=== PATIENT | male | born 1940 | race Caucasian/White ===

== ENCOUNTER 2016-06-29 11:41 | Inpatient (IN) | payer OTHER, MEDICARE ==
[~2016-06-29] VITALS: Ht 170.2 cm; Wt 82.1 kg
[~2016-06-29 11:41] MED LIST: ASPIRIN EC81 M1 PO; AUGMENTIN 875 M1 TAB PO; CLOPIDOGREL75 M1 PO; HYDRALAZINE100 MG PO; HYDRODIURIL 112.5 M1 PO; HYDRODIURIL 112.5 MG PO; LISINOPRIL40 MG PO; METOPROLOL SUCC50 M1 PO; NORVASC 10MG10 MG PO; OXYCODONE5 M1 PO; PERCOCET 325 MG1 TA2 PO; SIMVASTATIN20 MG PO; VIBRAMYCIN100 MG PO
--- NOTE | 2016-06-29 12:08 | NUR ---
PT. RECEIVED FROM EMS, ALERT, ORIENTED X4, STATES HE WAS WATCHING TV WHEN HE DEVELOPED CHEST PAIN OVER LEFT CHEST BREAST AREA, NON-RADIATING. PT. STATES HE TOOK 2 ADULT STRENGTH ASPIRIN, AND WHEN EMT'S ARRIVED HE TOOK 3 CHEWABLE 81 MG ASPIRIN. PT. STATES THE PAIN IN HIS CHEST NOW IS AT LEVEL 4-5 AND IT WAS THE SAME ONE HOUR AGO WHEN THE C/P STARTED. PT. SMOKES ONE PK A CIGARETTES A DAY.DENIES ETOH. PT. MEDICATED BY SHANNAN MANZO WITH LABATELOL 10 MG FOR BP 234/112 AUTO CUFF, RECHECKED: MANUAL CUFF 228/100, HR 74
--- NOTE | 2016-06-29 12:15 | NUR ---
EVALUATED BY Alma Rosa PLASCENCIA
--- NOTE | 2016-06-29 12:31 | ED CARDIAC/CP/PALPITATIONS ---
History of Present Illness General Chief Complaint: Chest Pain Stated Complaint: BIBA FOR CP Source: patient, old records Exam Limitations: no limitations Vital Signs & Intake/Output Vital Signs & Intake/Output Vital Signs Date Time Temp Pulse Resp B/P Pulse O2 O2 Flow FiO2 Ox Delivery Rate 07/04 0900 58 160/80 07/04 0900 58 160/80 07/04 0900 58 160/80 07/04 0842 98.5 58 16 160/80 93 Room Air 07/04 0800 Room Air 07/04 0006 98.5 58 18 142/82 91 Room Air 07/03 2227 98.1 64 20 142/74 96 Room Air 07/03 2054 64 162/80 07/03 2054 64 162/80 07/03 1648 98.1 62 17 196/70 96 Room Air 07/03 1600 Room Air 07/03 1226 158/80 07/03 1224 53 158/80 ED Intake and Output 07/04 0000 07/03 1200 Intake Total 840 Output Total Balance 840 Intake, Oral 840 Allergies Coded Allergies: nitroglycerin (Severe, RASH, THROAT SWELLING, DEPRESSION, +SI THOUGHTS 04/20/16) Triage Note: PT. RECEIVED FROM EMS, ALERT, ORIENTED X4, STATES HE WAS WATCHING TV WHEN HE DEVELOPED CHEST PAIN OVER LEFT CHEST BREAST AREA, NON-RADIATING. PT. STATES HE TOOK 2 ADULT STRENGTH ASPIRIN, AND WHEN EMT'S ARRIVED HE TOOK 3 CHEWABLE 81 MG ASPIRIN. PT. STATES THE PAIN IN HIS CHEST NOW IS AT LEVEL 4-5 AND IT WAS THE SAME ONE HOUR AGO WHEN THE C/P STARTED. PT. SMOKES ONE PK A CIGARETTES A DAY.DENIES ETOH. Triage Nurses Notes Reviewed? yes HPI: 76-year-old male brought in by ambulance with complaints of moderate 5 out of 10 sharp aching left sided anterior chest pain that was nonradiating that started while he was at rest, sitting watching TV. He is a pack per day smoker, history of coronary disease , (5 Cardiac stents 10 years ago with CHF), hypertension, hyperlipidemia, NSTEMI (s/p PCI of the LCX), left subclavian stenosis, however patient states that he only has a history of CHF. He is admittedly noncompliant with he states he has been feeling well over the last few days. He took 2 325 mg aspirins and called an ambulance, upon EMS arrival they gave him 3 81 mg aspirins. His pain started around 11 AM suddenly. It is unchanged. He has an allergy to nitroglycerin which causes a diffuse rash. He denies any headaches, palpitations, nausea vomiting abdominal pain back pain and shortness of breath cough fever or flulike illness. (CARLA SHEETS) Reconcile Medications AMOXICILLIN/POTASSIUM CLAV (Augmentin 875-125 Tablet) 875 MG/125 MG TAB 1 TAB PO BID E.Coli septicemia Next dose is due at 12/21/14 NIGHT. Aspirin (Ecotrin*) 81 MG TABLET.DR 1 TAB PO DAILY Baby aspirin (Reported) CLOPIDOGREL BISULFATE (Clopidogrel) 75 MG TABLET 75 MG PO DAILY BLOOD THINNER (Reported) Doxycycline Hyclate (Vibramycin) 100 MG CAPSULE 1 CAP PO BID PNEUMONIA Metoprolol Succinate (Metoprolol Succinate XL) 50 MG TAB.ER.24H 50 MG PO DAILY HIGH BLOOD PRESSURE (Reported) OXYCODONE HCL (Oxycodone) 5 MG CAPSULE 1 CAP PO Q6 PRN PAIN Simvastatin (Zocor) 20 MG TAB 20 MG PO DAILY HIGH CHOLESTROL (Reported) (BOY MUNSON,[place]OT[place]) Past History Travel History Traveled to [place] past 21 day No Medical History Any Pertinent Medical History? see below for history Neurological: NONE EENT: glaucoma, corneal transplant (left eye) Cardiovascular: CAD (w/ 5 cardiac stent placement), CHF (5 year history), hypertension, hyperlipidemia, NSTEMI (w/ PCI of Left Circumflex A) Respiratory: COPD Gastrointestinal: NONE Hepatic: NONE Renal: stent placement (renal artery) Musculoskeletal: NONE Psychiatric: NONE Endocrine: NONE Blood Disorders: NONE Cancer(s): NONE DECKHAND CRAB BOAT/Reproductive: NONE Other Medical Hx: Psoriasis History of MRSA: No History of VRE: No History of CDIFF: No Isolation History: Standard Surgical History Surgical History: cholecystectomy (1 month ago), ERCP Cardiac stents Corneal transplant 2 Psychosocial History Who do you live with Spouse What is your primary language Moldovan Tobacco Use: Current Daily Use Daily Tobacco Use Amount/Type: => 5 Cigarettes daily ETOH Use: denies use Family History Family History, If Any: FATHER ( at a young age from renal disease). Hx Contributory? Yes (CARLA SHEETS) Review of Systems Review of Systems Constitutional: Reports: see HPI. EENTM: Reports: no symptoms. Respiratory: Reports: no symptoms. Cardiovascular: Reports: see HPI. GI: Reports: no symptoms. Genitourinary: Reports: no symptoms. Musculoskeletal: Reports: no symptoms. Skin: Reports: no symptoms. Neurological/Psychological: Reports: no symptoms. Hematologic/Endocrine: Reports: no symptoms. Immunologic/Allergic: Reports: no symptoms. All Other Systems: Reviewed and Negative (CARLA SHEETS) Physical Exam Physical Exam Cardiovascular: regular rate/rhythm Comments: Well-developed well-nourished person in no acute distress HEENT: Left eye corneal transplant noted Pupils equally round and reactive to light. Nose is atraumatic. Pharynx normal. No swelling or edema. Neck: Supple, no lymphadenopathy, normal range of motion without pain or tenderness Back: Nontender, no CVA tenderness. Full range of motion Cardiovascular: Regular rate and rhythms no murmurs, normal JVP Respiratory: Decreased breath sounds with faint wheezing noted. No respiratory distress. Abdomen: Soft, nontender nondistended, no appreciable organomegaly. Normal bowel sounds. No ascites Extremity: Trace bilateral lower extremity No edema, no calf tenderness to palpation, normal and equal pulses. Neuro: Alert oriented x3, motor sensory normal, cranial nerves II through XII grossly intact. Skin: No appreciable rash on exposed skin, skin is warm and dry. Psych: Mood and affect is normal, memory and judgment is normal. Core Measures ACS in differential dx? Yes Severe Sepsis Present: No Septic Shock Present: No (CARLA SHEETS) Progress Differential Diagnosis: AMI, aortic dissection, atrial fibrillation, cholecystitis, CHF/pulm edema, costochondritis, hyperkalemia, hypovolemia, hyperthyroid, hyperventilation, intracranial hemorrhage, musculoskeletal pain, myocarditis, pancreatitis, pericarditis, pneumonia, pneumothorax, PSVT, pulmonary embolism, PUD/GERD, PVCs/PACs, respiratory failure, rib fracture, sepsis, unstable angina, V-fib/V-Tach, WPW syndrome Plan of Care: Orders Procedure Date/time Status Transfer Disposition 07/03 1628 Active OXYGEN 07/03 UNK Complete OXYGEN DAILY CHARGE 07/03 UNK Complete Current Medications Sig/Jonathan Start time Last Medication Dose Stop Time Status Admin Oxycodone/ 2 TAB Q8P PRN 06/29 1745 AC Acetaminophen (Percocet) Laboratory Tests 07/04/16 0600: Anion Gap 9, Estimated GFR 46 L, BUN/Creatinine Ratio 15.3 Diagnostic Imaging: Viewed by Me: CT Scan. Discussed w/RAD: CT Scan. Radiology Impression: PATIENT: IRENE GIRALDO PRESENT AGE: 76 PATIENT ACCOUNT NO: [id number] : 42 LOCATION: [facility] ORDERING PHYSICIAN: CARLA SULLIVAN SERVICE DATE: 06/29/16 EXAM TYPE : CAT - CTA CHEST-AORTIC DISSECTION EXAMINATION: CTA OF CHEST FOR AORTIC DISSECTION CLINICAL INFORMATION: Chest pain. Hypertension. COMPARISON: CT of chest 09/05/2009. Chest x-ray 06/29/2016 TECHNIQUE: Noncontrast axial images obtained through the chest. IV injection of 100 mL Optiray 350 administered intravenously. Images repeated through the chest axially. Coronal and sagittal reformatted images as well as axial MIP sequence. (No off site 3-D imaging performed) FINDINGS: VASCULAR: There is no aortic dissection. No aneurysm of the aorta. Ascending aorta measures 2.7 cm descending thoracic aorta measures 2.6 cm in luminal diameter at the level of the main pulmonary artery. A aorta at the aortic hiatus measures 2.4 cm. There is diffuse atherosclerotic vascular wall calcifications of aorta. There is vascular wall calcification of the coronary arteries. The pulmonary arteries are well-opacified. No filling defects. No evidence of pulmonary embolism. LUNGS: Small peripheral infiltrate in the left lung in subpleural lung along the major fissure seen in the anterior left lower lobe and posterior lateral lingula, sagittal image #20, axial images 273 (5). The central bronchial airways are open. No bronchiectasis. MEDIASTINUM: No mass. No lymphadenopathy. There is no pericardial effusion. AXILLA: No axillary mass or inflammation. UPPER ABDOMEN: Small hepatic cysts at the dome left lobe of liver. Gallbladder not visualized may be surgically absent. Clinically correlate. Extrahepatic CBD measures 7 mm. 1 cm nodule in the left adrenal gland with density measurement of 5 Hounsfield units consistent with small adenoma. SKELETAL: Mild degenerative spondylosis of dorsal spine. IMPRESSION: 1. No aortic dissection or aneurysm. There is atherosclerotic vascular calcifications of aorta and coronary arteries. 2. Small peripheral infiltrate in left lung DICTATED BY: GÓMEZ SINGH MD DATE/TIME DICTATED:06/29/161611 AREA FORESTER :ALEX DATE/TIME TRANSCRIBED:06/29/161611 Initial ED EKG: NSR, rate (72), LVH, abnormal Q waves (v1v2), nonspecific T-wave abnormalities inferior and lateral which appeared to be mildly worse from his previous EKG in April 2016 Prior EKG: changed Rhythm Strip: normal sinus rhythm Comments: Patient noted to have significantly elevated blood pressure, labetalol 10 mg IV was given with mild improvement of blood pressure. Supplemental oxygen provided. We will continue to monitor him. Patient had modest improvement in blood pressure, no change in his pain, he is given 2 mg of morphine IV and reevaluated. 06/29/2016 1:46:26 PM patient reevaluated, still 5 out of 10 pain left side of his chest, blood pressure is has elevated to 230 systolic, he is given 10 mg of hydralazine IV, call placed to cardiology, laboratory values are unremarkable Discussed with Dr. Cunningham, recommends 5 mg of amlodipine and pressure does not improve he should be admitted to the ICU. He continues to have left-sided chest pain without any significant change from the morphine and he is having some mild wheezing. An albuterol nebulizer treatment was ordered and he is given 1 mg of IV Dilaudid for his pain. (CARLA SHEETS) Departure Departure Disposition: STILL A PATIENT Condition: Guarded Referrals: PATIENT HAS NO PRIMARY CARE DR (PCP/Family) Departure Forms: Customer Survey General Discharge Information Admission Note Spoke With: Jennifer ORELLANA MD Documentation of Exam: Documentation of any treatments & extenuating circumstances including Concerns Regarding Discharge (functional status, medication knowledge or non-compliance, living conditions, etc.) that warrant an admission rather than observation: Patient with left-sided chest pain and hypertension that is not responding to treatment in the emergency department, will require ICU monitoring. Discussed with skilled nursing case manager Dr. Orellana. Multiple risk factors uncontrolled hypertension high risk for morbidity or mortality due to risk factors, smoking, severely uncontrolled hypertension and chest pain. He is a poor candidate for discharge home (CARLA SHEETS) Departure Clinical Impression Primary Impression: Hypertension, malignant Secondary Impressions: Chest pain Qualifiers: Chest pain type: unspecified Qualified Code: R07.9 - Chest pain, unspecified PA/UNDERWRITING ASSISTANT Co-Sign Statement Statement: ED Attending supervision documentation- [X] I saw and evaluated the patient. I have also reviewed all the pertinent lab results and diagnostic results. I agree with the findings and the plan of care as documented in the PA's/UNDERWRITING ASSISTANT's documentation. [X] I have reviewed the ED Record and agree with the PA's/UNDERWRITING ASSISTANT's documentation. [] Additions or exceptions (if any) to the PAs/UNDERWRITING ASSISTANT's note and plan are summarized below: [] (CHARLOTTE KNOX MD) Critical Care Note Critical Care Note Critical Care Time: 30-74 min Comments: Multiple doses of IV antihypertensive medication required. Patient requires admission to ICU. Discussed with Dr. Knox (CARLA SHEETS) Departure Forms: Customer Survey General Discharge Information Admission Note Spoke With: Jennifer ORELLANA MD Documentation of Exam: Documentation of any treatments & extenuating circumstances including Concerns Regarding Discharge (functional status, medication knowledge or non-compliance, living conditions, etc.) that warrant an admission rather than observation: Patient with left-sided chest pain and hypertension that is not responding to treatment in the emergency department, will require ICU monitoring. Discussed with skilled nursing case manager Dr. Orellana. Multiple risk factors uncontrolled hypertension high risk for morbidity or mortality due to risk factors, smoking, severely uncontrolled hypertension and chest pain. He is a poor candidate for discharge home (CARLA SHEETS) Departure Clinical Impression Primary Impression: Hypertension, malignant Secondary Impressions: Chest pain Qualifiers: Chest pain type: unspecified Qualified Code: R07.9 - Chest pain, unspecified (CHARLOTTE KNOX MD) Critical Care Note Critical Care Note Critical Care Time: 30-74 min Comments: Multiple doses of IV antihypertensive medication required. Patient requires admission to ICU. Discussed with Dr. Knox (CARLA SHEETS)
--- NOTE | 2016-06-29 12:31 | RADIOLOGY REPORT ---
EXAMINATION: XR PORTABLE CHEST CLINICAL INFORMATION: Chest pain. Hypertension. COMPARISON: 04/20/2016 TECHNIQUE: Portable view of the chest was obtained. FINDINGS: Cardiac leads overlie the chest. The lungs are well expanded. Mild bronchial wall thickening with increased interstitial markings. There is no focal consolidation, edema, or effusion. No pneumothorax. The cardiomediastinal silhouette is within normal limits. No acute osseous abnormality. IMPRESSION: No consolidation. Bronchial wall thickening can be seen with a small airways process such as asthma or atypical/viral infection.
[2016-06-29 12:55] LABS: ABSOLUTE BASOPHIL COUNT 0 /CUMM (0.0-0.2); ABSOLUTE EOSINOPHIL COUNT 0.4 /CUMM (0.0-0.7); ABSOLUTE GRANULOCYTE CT 8.9 /CUMM (1.4-6.5); ABSOLUTE LYMPH COUNT 1.1 /CUMM (1.2-3.4); ABSOLUTE MONOCYTE COUNT 1.1 /CUMM (0.10-0.60); BASOPHIL % 0.2 % (0.0-2.0); EOSINOPHIL % 3.3 % (0-5); GRANULOCYTE % 77.1 % (42.2-75.2); MEAN CORPUSCULAR HGB 30.1 PG (27.0-31.0); MEAN CORPUSCULAR HGB CONC 33.6 G/DL (33.0-37.0); MEAN CORPUSCULAR VOLUME 89.7 FL (80.0-94.0); MEAN PLATELET VOLUME 8.7 FL (7.4-10.4); PLATELET COUNT 192 /CUMM (130-400); RBC DISTRIBUTION WIDTH 13.5 % (11.5-14.5); RED BLOOD CELL CT 5.46 /CUMM (4.70-6.10); WHITE BLOOD CELL COUNT 11.5 /CUMM (4.8-10.8)
--- NOTE | 2016-06-29 13:00 | NUR ---
PT REPORTS HE HAS HAD A A BLOOD CLOT IN HIS LEFT ARM FOR "YEARS",
--- NOTE | 2016-06-29 13:15 | NUR ---
MEDICATED FOR CHEST PAIN 12/18. LABS DRAWN ANT 1245 (1 PURPLE, 1SST, 1 BLUE, 1 YANG)
--- NOTE | 2016-06-29 14:27 | NUR ---
ADDITIONAL IV SITE STARTED,PT. ANXIOUS, AUDIBLE EXP. WHEEZING HEARD, UPON EXAM, RIGHT MID TO RIGHT BASE OF LUNG PRESENT FOR TIGHT WHEEZING, O2 SATURATION 96 ON 2LNP, PT. REASSURED, LAURIE CEBALLOS NOTIFIED, ALBUTEROL NEB ORDERED FOR WHEEZING AND BP 218/105, NORVASC 5MG PO ORDERED FOR NOW
--- NOTE | 2016-06-29 15:12 | NUR ---
MEDICATED FOR LEFT CHEST PAIN (SEE EMAR)
--- NOTE | 2016-06-29 15:15 | NUR ---
ASSUMED CARE OF PT. PT CONTINUES TO HAvE CHEST DISCOMFORT. BLOOD PRESSURE CONTINUES TO BE ELEVATED DESPITE MEDS GIVEN. IN SINUS RHYTHM ON MONTIOR. SATS 98% ON 2 LITERS.
--- NOTE | 2016-06-29 15:20 | NUR ---
ASSUMED CARE OF PT. PT CONTINUES TO COMPLAIN OF CHEST DISCOMFORT. BLOOD PRESSURE CONTINUES TO BE ELEVATED
--- NOTE | 2016-06-29 15:30 | NUR ---
CARLA Posadas IN TO SEE PT. ADDITIONAL DOSE OF HYDRALAZINE GIVEN
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
--- NOTE | 2016-06-29 15:50 | NUR ---
PT IN CT SCAN. LEFT ARM IV IN AC PAINFUL IN CT SCAN. NEW LINE PLACED IN LEFT UPPER ARM
--- NOTE | 2016-06-29 16:13 | NUR ---
PT HAS BED ASSIGNMENT 109
--- NOTE | 2016-06-29 16:24 | CT SCAN REPORT ---
EXAMINATION: CTA OF CHEST FOR AORTIC DISSECTION CLINICAL INFORMATION: Chest pain. Hypertension. COMPARISON: CT of chest 09/05/2009. Chest x-ray 06/29/2016 TECHNIQUE: Noncontrast axial images obtained through the chest. IV injection of 100 mL Optiray 350 administered intravenously. Images repeated through the chest axially. Coronal and sagittal reformatted images as well as axial MIP sequence. (No off site 3-D imaging performed) FINDINGS: VASCULAR: There is no aortic dissection. No aneurysm of the aorta. Ascending aorta measures 2.7 cm descending thoracic aorta measures 2.6 cm in luminal diameter at the level of the main pulmonary artery. A aorta at the aortic hiatus measures 2.4 cm. There is diffuse atherosclerotic vascular wall calcifications of aorta. There is vascular wall calcification of the coronary arteries. The pulmonary arteries are well-opacified. No filling defects. No evidence of pulmonary embolism. LUNGS: Small peripheral infiltrate in the left lung in subpleural lung along the major fissure seen in the anterior left lower lobe and posterior lateral lingula, sagittal image #20, axial images 273 (5). The central bronchial airways are open. No bronchiectasis. MEDIASTINUM: No mass. No lymphadenopathy. There is no pericardial effusion. AXILLA: No axillary mass or inflammation. UPPER ABDOMEN: Small hepatic cysts at the dome left lobe of liver. Gallbladder not visualized may be surgically absent. Clinically correlate. Extrahepatic CBD measures 7 mm. 1 cm nodule in the left adrenal gland with density measurement of 5 Hounsfield units consistent with small adenoma. SKELETAL: Mild degenerative spondylosis of dorsal spine. IMPRESSION: 1. No aortic dissection or aneurysm. There is atherosclerotic vascular calcifications of aorta and coronary arteries. 2. Small peripheral infiltrate in left lung
--- NOTE | 2016-06-29 16:26 | NUR ---
RETURNED FROM CT SCAN. PHYSICIANS REVIEWING CTA SCAN AND NOW IN TO SEE PT
--- NOTE | 2016-06-29 17:40 | NUR ---
PT SENT TO ULTRASOUND.
--- NOTE | 2016-06-29 18:31 | Cons- Cardiology ---
General Information and HPI Consulting Request Date of Consult: 06/29/16 Requested By: Jennifer ORELLANA MD Reason for Consult: Chest pain and uncontrolled HTN Source of Information: patient, family, old records History of Present Illness: 76/M with PMH of CAD (w/ 5 cardiac stent placement), CHF (7 year history), HTN, HLD, NSTEMI (w/ PCI of Left Circumflex A) stent placement (renal artery), glaucoma, corneal transplant (left eye), psoriasis and cholecystectomy 2 years ago presented to [facility] complaning of left upper quadrant abdominal pain radiates to his left lower chest. Around 10 AM patient starts c/o sudden, 4/10, constant, sharp, LUQ abdominal pain that radiates to the anterior inferior left chest. Pain gets worse with deep inspiration and food and nothing seems to help. Patient reported that around 10 AM he got the pain around one hour post meal, then the pain started to improve, however pain got worse around 1 hour after he had while he is in the ED. Patient denies nausea, vomiting, diarrhea, constipation, fever or chills. Patient denies recent use of steroids or NSAIDs, recent travel, or recent sick contacts. Patient denies palpitation, patient radiation to the arm, or diaphoresis however he reported mild dyspnea because breathing makes his pain worse. Allergies/Medications Allergies: Coded Allergies: nitroglycerin (Severe, RASH, THROAT SWELLING, DEPRESSION, +SI THOUGHTS 04/20/16) Home Med List: AMOXICILLIN/POTASSIUM CLAV (Augmentin 875-125 Tablet) 875 MG/125 MG TAB 1 TAB PO BID E.Coli septicemia Next dose is due at 12/21/14 NIGHT. Aspirin E.c. (Ecotrin) 325 MG TAB 1 TAB PO DAILY HEART HEALTH (Reported) CLOPIDOGREL BISULFATE (Clopidogrel) 75 MG TABLET 75 MG PO DAILY BLOOD THINNER (Reported) Doxycycline Hyclate (Vibramycin) 100 MG CAPSULE 1 CAP PO BID PNEUMONIA Metoprolol Succinate (Metoprolol Succinate XL) 50 MG TAB.ER.24H 50 MG PO DAILY HIGH BLOOD PRESSURE (Reported) OXYCODONE HCL (Oxycodone) 5 MG CAPSULE 1 CAP PO Q6 PRN PAIN Simvastatin (Zocor) 20 MG TAB 20 MG PO DAILY HIGH CHOLESTROL (Reported) Current Medications: Current Medications Sig/Jonathan Start time Last Medication Dose Route Stop Time Status Admin Acetaminophen 650 MG Q6P PRN 06/29 1730 AC PO Albuterol Sulfate 3 ML ONCE ONE 06/29 1430 DC 06/29 INH 06/29 1431 1426 Amlodipine Besylate 5 MG DAILY 06/30 1000 AC PO Amlodipine Besylate 0 .STK-MED ONE 06/29 1421 DC PO Amlodipine Besylate 5 MG ONCE ONE 06/29 1415 DC 06/29 PO 06/29 1416 1433 Aspirin 81 MG DAILY 06/30 1000 AC PO Docusate Sodium 100 MG BID PRN 06/29 1745 AC PO Heparin Sodium 5,000 UNIT Q8 06/29 2200 AC (Porcine) SC Hydralazine HCl 0 .STK-MED ONE 06/29 1532 DC .ROUTE Hydralazine HCl 10 MG ONCE ONE 06/29 1530 DC 06/29 IV 06/29 1531 1538 Hydralazine HCl 10 MG ONCE ONE 06/29 1345 DC 06/29 IV 06/29 1346 1348 Hydralazine HCl 0 .STK-MED ONE 06/29 1342 DC .ROUTE Hydromorphone HCl 1 MG ONCE ONE 06/29 1515 DC 06/29 IV 06/29 1516 1511 Hydromorphone HCl 0 .STK-MED ONE 06/29 1509 DC .ROUTE Labetalol HCl 100 MG BID 06/29 2200 AC PO Labetalol HCl 10 MG ONCE ONE 06/29 1200 DC 06/29 IV 06/29 1201 1201 Labetalol HCl 0 .STK-MED ONE 06/29 1156 DC IV Morphine Sulfate 2 MG ONCE ONE 06/29 1315 DC 06/29 IV 06/29 1316 1315 Morphine Sulfate 0 .STK-MED ONE 06/29 1312 DC .ROUTE Oxycodone/ 2 TAB Q8P PRN 06/29 1745 AC Acetaminophen PO Oxycodone/ 1 TAB Q6P PRN 06/29 1730 AC Acetaminophen PO Past History Travel History Traveled to [place] past 21 day No Medical History Neurological: NONE EENT: glaucoma, corneal transplant (left eye) Cardiovascular: CAD (w/ 5 cardiac stent placement), CHF (5 year history), hypertension, hyperlipidemia, NSTEMI (w/ PCI of Left Circumflex A) Respiratory: COPD Gastrointestinal: NONE Hepatic: NONE Renal: stent placement (renal artery) Musculoskeletal: NONE Psychiatric: NONE Endocrine: NONE Blood Disorders: NONE Cancer(s): NONE [employer]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 Psychosocial History Primary Language: Slovak Smoking Status: Current Everyday Smoker ETOH Use: denies use Functional Ability ADLs Independent: dressing, eating, toileting, bathing. Ambulation: independent Exam & Diagnostic Data Vital Signs and I&O Vital Signs Date Time Temp Pulse Resp B/P Pulse O2 O2 Flow FiO2 Ox Delivery Rate 06/29 1625 200/88 06/29 1615 98.7 82 20 203/88 95 Room Air 06/29 1538 72 220/110 06/29 1503 72 26 220/110 96 Nasal 2.0L Cannula 06/29 1450 70 18 232/104 06/29 1437 97 Nasal 1.5L Cannula 06/29 1433 70 218/105 06/29 1420 218/105 06/29 1348 74 18 234/112 06/29 1251 74 18 202/94 99 Nasal 2.0L Cannula 06/29 1201 78 18 228/112 06/29 1200 98.4 70 18 228/112 100 Room Air Intake & Output 06/29 1600 06/29 0800 06/29 0000 06/28 1600 06/28 0800 06/28 0000 Intake Total 10 Output Total Balance 10 Intake, IV 10 Patient 181 lb Weight Labs/Jovan Results: Laboratory Tests 06/29 06/29 1240 1240 Chemistry Sodium (137 - 145 mmol/L) 142 Potassium (3.5 - 5.1 mmol/L) 4.1 Chloride (98 - 107 mmol/L) 103 Carbon Dioxide (22 - 30 mmol/L) 29 Anion Gap (5 - 16) 10 BUN (9 - 20 mg/dL) 19 Creatinine (0.7 - 1.2 mg/dL) 1.3 H Estimated GFR (>60 ml/min) 54 L BUN/Creatinine Ratio (7 - 25 %) 14.6 Glucose (65 - 99 mg/dL) 105 H Hemoglobin A1c Pending Lactic Acid (0.7 - 2.1 mmol/L) 1.4 Calcium (8.4 - 10.2 mg/dL) 9.1 Total Bilirubin (0.2 - 1.3 mg/dL) 0.5 AST (17 - 59 U/L) 21 ALT (21 - 72 U/L) 28 Alkaline Phosphatase (< 127 U/L) 80 Troponin I (<0.11 ng/ml) 0.03 Omd-L-Ifiqxuflnjs Pept (<125 pg/mL) Pending Total Protein (6.3 - 8.2 g/dL) 7.1 Albumin (3.5 - 5.0 g/dL) 3.7 Globulin (1.9 - 4.2 gm/dL) 3.4 Albumin/Globulin Ratio (1.1 - 2.2 %) 1.1 Amylase (30 - 110 U/L) 71 Lipase (23 - 300 U/L) 149 Hematology CBC w Diff NO MAN DIFF REQ WBC (4.8 - 10.8 /CUMM) 11.5 H RBC (4.70 - 6.10 /CUMM) 5.46 Hgb (14.0 - 18.0 G/DL) 16.4 Hct (42 - 52 %) 49.0 MCV (80.0 - 94.0 FL) 89.7 MCH (27.0 - 31.0 PG) 30.1 RDW (11.5 - 14.5 %) 13.5 Plt Count (130 - 400 /CUMM) 192 MPV (7.4 - 10.4 FL) 8.7 Gran % (42.2 - 75.2 %) 77.1 H Lymphocytes % (20.5 - 51.1 %) 9.5 L Monocytes % (1.7 - 9.3 %) 9.9 H Eosinophils % (0 - 5 %) 3.3 Basophils % (0.0 - 2.0 %) 0.2 Absolute Granulocytes (1.4 - 6.5 /CUMM) 8.9 H Absolute Lymphocytes (1.2 - 3.4 /CUMM) 1.1 L Absolute Monocytes (0.10 - 0.60 /CUMM) 1.1 H Absolute Eosinophils (0.0 - 0.7 /CUMM) 0.4 Absolute Basophils (0.0 - 0.2 /CUMM) 0 PUBS MCHC (33.0 - 37.0 G/DL) 33.6 Diagnostic Data EKG Results Sinus rhythm with NSSTTWCs CXR Results FINDINGS: Cardiac leads overlie the chest. The lungs are well expanded. Mild bronchial wall thickening with increased interstitial markings. There is no focal consolidation, edema, or effusion. No pneumothorax. The cardiomediastinal silhouette is within normal limits. No acute osseous abnormality. IMPRESSION: No consolidation. Bronchial wall thickening can be seen with a small airways process such as asthma or atypical/viral infection. Other Results CTA chest: IMPRESSION: 1. No aortic dissection or aneurysm. There is atherosclerotic vascular calcifications of aorta and coronary arteries. 2. Small peripheral infiltrate in left lung Assessment/Plan Assessment/Plan Assessment: 1. Uncontrolled HTN 2. LUQ/Left lower chest discomfort; r/o ACS - The patient symptoms are atypical for ischemia. CT shows subtle left lower lobe infiltrate with mildly elevated WBC count. No dissection on CT chest. 3. Known CAD with distant history of multiple stents. 4. Mild SANDRO 5. History of renal artery stenosis and prior stent 6. Left adrenal nodule; ? adenoma 7. Diffuse atheromatous disease thoracic aorta with evidence of plaque ulceration. REcommendations: - ICU admission. - continue labetalol and amlodipine with IV doses of hydralazine as needed - serial troponins - echocardiogram - renal ultrasound with renal artery doppler - attempt to obtain any possible records about prior coronary artery and renal artery interventions. - 24 hour urine collections for VMA, metanephrines, catechols, cortisol, etc. - further plans after the above - followup labs in am. - ?consider baseline Pulmonary consult to assess ? LLL infiltrate. Consult Acknowledgment - Thank you for your consult request.
--- NOTE | 2016-06-29 18:45 | ULTRASOUND REPORT ---
EXAMINATION: US DUPLEX CAROTID AND VERTEBRAL CLINICAL INFORMATION: Right eye flashing light COMPARISON: None. TECHNIQUE: Real-time ultrasound and Doppler techniques (integrating B-mode 2D vascular images, Doppler spectral analysis and color flow Doppler imaging) were utilized to interrogate the extracranial carotid and vertebral arteries bilaterally. The degree of stenosis determined by criteria similar to NASCET. FINDINGS: Right common carotid artery peak systolic velocity ranges between 110 and 114 cm/s with maximal end-diastolic velocity of 21.6 cm/s. Right internal carotid artery peak systolic velocities range between 60.4 and 87.9 cm/s with maximal end-diastolic velocity of 21.1 cm/s. Right external carotid artery peak systolic velocity is 119 cm/s. There is atherosclerotic disease of the right carotid bifurcation. The right vertebral artery is not visualized and I cannot exclude that it is occluded. Left common carotid artery peak systolic velocities range between 55.8 and 68.4 cm/s with end-diastolic velocity of 25.5 cm/s. There is no demonstrated Doppler flow within the left internal carotid artery, concerning for left internal carotid artery occlusion. A CTA would be helpful in ensuring that this reflects a true occlusion and not a preocclusive stenosis. Left external carotid artery peak systolic velocity is 69.2 cm/s with an end-diastolic velocity of 18.8 cm/s. There is antegrade flow within the left vertebral artery. Atherosclerotic plaque at the left carotid bifurcation. IMPRESSION: - There is no Doppler flow within the left internal carotid artery from just beyond its origin through the visualized cervical segment, concerning for left internal carotid artery occlusion. A CTA would be helpful in ensuring that this reflects a true occlusion and not a preocclusive stenosis. - The right vertebral artery is not visualized and I cannot exclude occlusion. CTA would be helpful in further assessment.
--- NOTE | 2016-06-29 18:50 | NUR ---
RETURNED FROM ULTRASOUND VITALS CHECKED. REPORT CALLED TO ICE NURSE MCKNIGHT.
--- NOTE | 2016-06-29 19:05 | NUR ---
REPEAT TROPONIN AND BLOODS DRAWN AND SENT BY TONEY ROY
--- NOTE | 2016-06-29 19:06 | NUR ---
PT WITH EXP WHEEZING AND FEELING SOB. ARINA MUNSON OVERHEAD CRANE OPERATOR PAGED FOR NEB TX
--- NOTE | 2016-06-29 19:08 | NUR ---
SPOKE WITH ARINA MUNSON AND HE STATES HE WILL ORDER NEB TX. RT PAGED TO COME GIVE TX
--- NOTE | 2016-06-29 19:33 | NUR ---
ARINA MUNSON CALLED TO CHECK ON NPO STATUS BECAUSE PT IN PAIN AND WANTS PAIN MED, ONLY PAIN MED ORDERED IS PO. ARINA STATES HE WILL ORDER IV PAIN MED
--- NOTE | 2016-06-29 19:49 | NUR ---
NEB TX GIVEN. ICU CALLED AND SAID THEY WERE READY FOR PT. TRANSPORT CALLED TO TAKE PT TO ROOM 109. REPORT CALLED EARLIER TO JUAN LUIS CAMPBELL
--- NOTE | 2016-06-29 21:22 | NUR ---
ADMISSION NOTE- Patient arrives to ICU room 109 at 2030pm from ER with REFORESTATION WORKER. Patient is able to transfer self from stretcher to bed without difficulty. He is a&oX3, follows all commands, and moves all extremities. Patient is NSR on rib sawyer and BP is elevated on arrival, 230/120 manually. The patient is on 2LNC with O2 sats 95%-97% but is found to have an insp/exp wheeze. Patient received a NEB treatment in ER prior to arrival to ICU. He is short of breath with exertion. Patient's abd is soft but slightly distended with +BS, +flatus. He reports to have moved his bowels prior to arrival in ER. Patient's skin is intact, but is found to be extremely dry. He has psoriasis to his hands and generalized over body. There are 2 patent peripheral IV's in place that are both saline locked. Patient reports left sided substernal chest pain 5/10. The patient is in no acute distress at this time, will cont to monitor.
--- NOTE | 2016-06-29 23:16 | Event Note ---
Event Note Event Note: BP update So far the patients BP has been steadily improving, and was down to approximately 180 systolically, without any antihypertensive medications given since coming up from the ER. At approximately 945, I was informed by the nursing team that the patients BP was 154 systolic, and 10 minutes later 114/64. The patient was asleep at this point. Upon evaluation, he had no acute complaints, stating that his chest/abdominal pain is much improved. He denied dyspnea, palpitations, headache, lightheadedness, dizziness, n/v, or visual/ hearing disturbances. The remainder of his vitals were stable HR 70, RR 28 saturating 94% on 2L. 1L of NS was ordered, and after rechecking BP again around 15 minutes later, it was back up to 152/63 and then within another 10-15 mintues autoBP measurement was 181/75. NS was discontinued after approximately 300cc given. Since then, his BP has remained aprroximately 180/70s, which is our goal systolic BP. We will continue to monitor BP closely with a goal to maintain this current BP. Holding PO labetolol for now.
[2016-06-30] VITALS: BP 184/88
[2016-06-30 06:10] LABS: ABSOLUTE BASOPHIL COUNT 0 /CUMM (0.0-0.2); ABSOLUTE EOSINOPHIL COUNT 0.2 /CUMM (0.0-0.7); ABSOLUTE GRANULOCYTE CT 9.1 /CUMM (1.4-6.5); ABSOLUTE MONOCYTE COUNT 1.2 /CUMM (0.10-0.60); BASOPHIL % 0.4 % (0.0-2.0); GRANULOCYTE % 78.8 % (42.2-75.2); HEMATOCRIT 48.7 % (42-52); MEAN CORPUSCULAR HGB CONC 33.1 G/DL (33.0-37.0); MEAN CORPUSCULAR VOLUME 90.4 FL (80.0-94.0); MEAN PLATELET VOLUME 9.2 FL (7.4-10.4); PLATELET COUNT 202 /CUMM (130-400); RBC DISTRIBUTION WIDTH 14.1 % (11.5-14.5); RED BLOOD CELL CT 5.39 /CUMM (4.70-6.10); WHITE BLOOD CELL COUNT 11.6 /CUMM (4.8-10.8)
--- NOTE | 2016-06-30 07:18 | PN- Resident CRCU ---
Subjective HPI/CRCU Issues: Patient was seen and examined. He is laying in bed looks mildly distressed because pain thats located on his lower left chest and LUQ abdomin. Patient reported that his pain improved over night then started back this morning. He denies nausea, vomiting, fever, or chills. he is complaning still of SOB and wheezing Patient is in ICU because of high blood pressure Objective Vital Signs & I&O Last 8 Hrs of Vitals and I&O: Pt seen and examined at bed side HR was stable on 82-66 BP HighestSystolic was 217 and highest diastolic was 91. TMax 98.4 His intake and output over 8 hours: Intake 400 and output is 500 (-100CC) Exam General Appearance: well developed/nourished, alert, awake, mild distress Head: atraumatic, normal appearance Neck: normal inspection, supple, no JVD Respiratory: rhonchi (b/l), mild wheezing more in right than left, decrease air entry on the left side more than right Cardiovascular: regular rate/rhythm Gastrointestinal: normal bowel sounds, soft, tenderness in the LUQ Extremities: no edema, dry Current Medications: Current Medications Sig/Jonathan Start time Last Medication Dose Route Stop Time Status Admin Acetaminophen 650 MG Q6P PRN 06/29 1730 AC PO Albuterol Sulfate 3 ML Q4P PRN 06/29 2215 AC INH Albuterol Sulfate 3 ML ONCE ONE 06/29 2014 DC 06/29 INH 06/29 Amlodipine Besylate 5 MG DAILY 06/30 1000 DC PO Aspirin 81 MG DAILY 06/30 1000 AC 06/30 PO 1129 Atorvastatin Calcium 40 MG 1700 06/30 1700 AC 06/30 PO 1719 Docusate Sodium 100 MG BID PRN 06/29 1745 AC PO Furosemide 20 MG ONCE ONE 06/30 1530 DC 06/30 IV 06/30 1531 1720 Heparin Sodium 5,000 UNIT Q8 06/29 2200 AC 06/30 (Porcine) SC 1433 Hydralazine HCl 100 MG BID 06/30 1104 AC PO Hydralazine HCl 10 MG ONCE PRN 06/29 2030 DC 06/30 IV 0807 Ipratropium [place] 2.5 ML ONCE ONE 06/29 2014 DC 06/29 INH 06/29 Labetalol HCl 20 MG ONCE ONE 06/30 1115 DC 06/30 IV 06/30 1116 1133 Labetalol HCl 200 MG BID 06/30 1105 AC 06/30 PO 1133 Labetalol HCl 100 MG BID 06/29 2200 DC PO Labetalol HCl 50 MG BID 06/29 220 DC PO Lorazepam 1 MG ONCE ONE 06/30 1130 DC 06/30 PO 06/30 1131 1133 Oxycodone/ 2 TAB Q8P PRN 06/29 1745 AC Acetaminophen PO Oxycodone/ 1 TAB Q6P PRN 06/29 1730 AC 06/29 Acetaminophen PO 2048 Pantoprazole Sodium 40 MG DAILY 06/30 1000 AC 06/30 IV 1129 Sodium Chloride 500 ML ONCE ONE 06/30 0915 DC 06/30 IV 06/30 1114 0906 Impression/Plan Impression/Problem List Impression: Respiratory: #dyspnea pt has long history of smoking, he has a baseline cough. he is c/o Left lower anterior pleuritic chest pain. ACS was r/o. He does have a questionable pulmonary infiltrate and slightly increased WBC count. * TRC * neub * we'll cont' follow off Abx for now, and watch for any signs of infection. Infectious Diseases: No infection currently Cardiovascular: patient has a history of HTN, HLD, LE bypass surgery, multiple cardiac stents, B/L renal stent and CHF however he is not taking any medicaitons for the past 2 years. he presented with chest/abdo pain and was found to have a BP of 200s/ 100s. even though we still working up his pain, it seems like his pain is related to food and high blood pressure(got worse with food and improved with decreasing BP) #Hypertensive Urgency * We'll start hydralazine 100mg PO BID * We'll change Labetolol to 200mg BID after a 20mg IV bolus. * The plan is to keep BP around 160s and decrease it by another 20% starting in am * We will also obtain an echocardiogram to evaluate for myocardial thickening and diastolic dysfunction. #Atherosclerosis and B/L CA stenosis as per neck CT * Pt will be started on statin and aspirin as well * vascular will be consulted. Hematology: pt has no anemia but has mildly elevated WBCs(11) * repeat CBC tomoroww Metabolic: Cr is 1.3 which is around his base line. patient has a B/L renal stent, given his BP at presentation we will order renal US and renal doppler * if abnormal follow with either an MRA or renal angiography depending on the results of the above * we'll repeat BEP at am Alimentary: Patient has Mild LUQ abdominal pain, pancreatitis was r/o, LFT is WNL. lactate was negative X2. pain started one hour postprandially. pt has history of multiple vascular disease. His pain may present mesenteric ischemia. * Ct abd and pelv was order to r/o and intra-abdominal pathology. Neurological: none Endocrinology none SKIN Diet NPO for U/S DVT/Prophylaxis: sc hep Code Status: Full code Problem List: 1. Hypertension Pain Ratin Tomorrow's Labs & Rationales: cbc and ICU bundle Plan DVT/Prophylaxis: mechanical, pharmacological
[2016-06-30 08:00] VITALS: BP 224/114
--- NOTE | 2016-06-30 10:59 | Cons- Cardiology ---
General Information and HPI Consulting Request Date of Consult: 06/30/16 Requested By: Jennifer ORELLANA MD History of Present Illness: Adrian is a 76 year old male with history of hypertension, dyslipidemia and peripheral vascular disease. He also carries a history or coronary artery disease s/p PCI by myself in 2009. He has not followed up in the office in a couple years due to his feeling well. He has requested that I continue to follow his care. At baseline this patient has limited exercise tolerance and can only walk quickly for a short distance before becoming winded. He does tend to keep himself physically busy however. Yesterday, this patient rather suddenly noted a moderate achiness over his left lower chest that was non-radiating. The discomfort was constant although it did seem to be slightly exacerbated by deep inspiration. There was mild associated shortness of breath and increased wheezing that was also noted. Otherwise this patient denies nausea, vomiting, diaphoresis, lightheadedness or palpitations. In the ER this patient was found to be severely hypertensive. It should be noted that he had stopped taking all his medications and explains that this was out of his own laziness rather than any intolerance. In 2009 this patient had severe precordial chest pain with shortness of breath and ruled in for a non-ST elevation NE. A cardiac catheterization showed 3 vessel CAD including an 85% stenosis of the LCX which received a 3.5 x 15mm [place] stent to its mid section and another 3.5 x 12mm endeavor stent to the proximal vessel. The left main harbors a 50% diffuse stenosis. The LAD is diffusely diseased with a 605 long mid lesion followed by a 70% bvery distal stenosis prior to wrapping around the apex. The obtuse marginal 2 vessel has a 60% ostial stenosis and the RCA is a dominant vessel with a 50% long mid stenosis. The RV marginal branch has a 705 mid stenosis. His most recent echo shows a normal EF of 72% with borderline LVH and trace MR and TR. This patient is a vasculopath and is s/p a fem/pop bypass of the left lower extremity and he also has a left subclavian stenosis. Allergies/Medications Allergies: Coded Allergies: nitroglycerin (Severe, RASH, THROAT SWELLING, DEPRESSION, +SI THOUGHTS 04/20/16) Home Med List: AMOXICILLIN/POTASSIUM CLAV (Augmentin 875-125 Tablet) 875 MG/125 MG TAB 1 TAB PO BID E.Coli septicemia Next dose is due at 12/21/14 NIGHT. Aspirin E.c. (Ecotrin) 325 MG TAB 1 TAB PO DAILY HEART HEALTH (Reported) CLOPIDOGREL BISULFATE (Clopidogrel) 75 MG TABLET 75 MG PO DAILY BLOOD THINNER (Reported) Doxycycline Hyclate (Vibramycin) 100 MG CAPSULE 1 CAP PO BID PNEUMONIA Metoprolol Succinate (Metoprolol Succinate XL) 50 MG TAB.ER.24H 50 MG PO DAILY HIGH BLOOD PRESSURE (Reported) OXYCODONE HCL (Oxycodone) 5 MG CAPSULE 1 CAP PO Q6 PRN PAIN Simvastatin (Zocor) 20 MG TAB 20 MG PO DAILY HIGH CHOLESTROL (Reported) Review of Systems Review of Systems: A twelve point review of systems is unremarkable. Past History Travel History Traveled to [place] past 21 day No Medical History Blood Transfusion Hx: No Neurological: NONE EENT: glaucoma, corneal transplant (left eye) Cardiovascular: CAD (w/ 5 cardiac stent placement), CHF (5 year history), hypertension, hyperlipidemia, NSTEMI (w/ PCI of Left Circumflex A) Respiratory: COPD Gastrointestinal: NONE Hepatic: NONE Renal: stent placement (renal artery) Musculoskeletal: NONE Psychiatric: NONE Endocrine: NONE Blood Disorders: NONE Cancer(s): NONE [employer]/Reproductive: NONE Other Medical Hx: Psoriasis Surgical History Surgical History: cholecystectomy (1 month ago), ERCP Cardiac stents Corneal transplant 2 Family History Relations & Conditions If Any: FATHER ( at a young age from renal disease). Psychosocial History Where Do You Live? Home Services at Home: None Primary Language: [place]an Smoking Status: Current Everyday Smoker ETOH Use: denies use Functional Ability ADLs Independent: dressing, eating, toileting, bathing. Ambulation: independent Exam & Diagnostic Data Vital Signs and I&O Vital Signs Date Time Temp Pulse Resp B/P Pulse O2 O2 Flow FiO2 Ox Delivery Rate 06/30 1013 97 Nasal 2.0L Cannula 06/30 0807 99.2 70 21 208/78 06/30 0800 99.2 76 20 224/114 95 Nasal 2.0L Cannula 06/30 0800 94 Nasal 2.0L Cannula 06/30 0400 94 Nasal 2.0L Cannula 06/30 0000 97.9 76 24 184/88 94 Nasal 2.0L Cannula 06/29 2158 Nasal 2.0L Cannula 01/19 2109 94 Nasal 2.0L Cannula 06/29 2005 96 Nasal 2.0L Cannula 06/29 1948 78 20 198/86 98 Nasal 2.0L Cannula 06/29 1849 97.7 75 16 190/84 98 Nasal 2.0L Cannula 06/29 1625 200/88 06/29 1615 98.7 82 20 203/88 95 Room Air 06/29 1538 72 220/110 06/29 1503 72 26 220/110 96 Nasal 2.0L Cannula 06/29 1450 70 18 232/104 06/29 1437 97 Nasal 1.5L Cannula 06/29 1433 70 218/105 06/29 1420 218/105 06/29 1348 74 18 234/112 06/29 1251 74 18 202/94 99 Nasal 2.0L Cannula 06/29 1201 78 18 228/112 06/29 1200 98.4 70 18 228/112 100 Room Air Intake & Output 06/30 1600 06/30 0800 06/30 0000 06/29 1600 06/29 0800 06/29 0000 Intake Total 400 10 Output Total 300 200 Balance -300 200 10 Intake, IV 400 10 Output, Urine 300 200 Patient 181 lb 181 lb Weight Physical Exam: General: WD/ WN male in NAD; alert and oriented x 3 HEENT: NC/AT; the left cornea is opacified Neck: no JVD, bilateral carotid bruits with surgical scar on right, left subclavian buit Heart: RRR with ectopy and a 2/6 systolic murmur at the apex and the LLSB Lungs: decreased breath sounds bilaterally, no crackles Abdomen: soft, distended, tympanic, tender, +ve bowel sounds, Left renal bruit Ext: no edema Assessment/Plan Assessment/Plan * This patient has exercise intolerance characterized by shortness of breath that is almost certainly the result of severe and uncontrolled hypertension. He does have a prominent left renal bruit and mild renal insufficiency and in that regard likely continues to have some degree of renal artery stenosis. That being said, he would nevertheless be doing better if he was compliant with his antihypertensive drug regimen. * Please obtain a renal ultrasound bilaterally and if abnormal follow with either an MRA or renal angiography depending on the results of the above. We will also obtain an echocardiogram to evaluate for myocardial thickening and diastolic dysfunction. * Restart his antihypertensive drug regimen. Our goal will be a decrease in BP to 160mmHg over the first 24 hours. Begin hydralazine 100mg PO BID and change Labetolol to 200mg BID after a 20mg IV bolus. * This patient should be on a statin and aspirin as well. * The patient's chest discomfort is pleuritic and I do not think it is a manifestation of an ACS. He does have a questionable pulmonary infiltrate and slightly increased WBC count that may explain this pleuritic discomfort. We will monitor this expectantly. Consult Acknowledgment - Thank you for your consult request.
--- NOTE | 2016-06-30 11:45 | NUR ---
RECEIVED PATIENT AT 0800. PATIENT IS A&OX3, DENIES COMPLAINTS. ON 2L NASAL CANNUA W/ EXP. WHEEZES. NSR ON THE MONITOR 70S-80S, SBP 224/114 MANUALLY AND 207/78 AUTOCUFF. 10 MG IV HYDRALAZINE GIVEN PER DR. MERCADO WITH LITTLE EFFECT. REPEAT B/P:192/77 @ 0830. CONTINUING TO MONITOR B/P. 1130: B/P 200/110. 20 MG IV LABETALOL GIVEN ALONG WITH 200 MG PO LABETALOL. BY 1200: PATIENT'S B/P 160/80. PATIENT DENIES COMPLAINTS. STATES IMPROVEMENT OF LUQ PAIN TO 1/10 WITH LOWER B/P. B/P REMAINED STABLE 140S-180S FOR REST OF THE DAY.
--- NOTE | 2016-06-30 12:30 | PN- Cardiology ---
Subjective Subjective: Overnight events noted. The patient had a transient drop in his blood pressure to the 120s and required some IV fluids to raise him back to the 160-180 range. Currently stable. Going for CTA of the neck this morning and renal artery Doppler. Initially he was doing well overnight. This morning had recurrence of left upper quadrant/left lower chest discomfort. Objective Vital Signs and I&Os Vital Signs Date Time Temp Pulse Resp B/P Pulse O2 O2 Flow FiO2 Ox Delivery Rate 06/30 1133 78 200/110 06/30 1133 78 200/110 06/30 1013 97 Nasal 2.0L Cannula 06/30 0807 99.2 70 21 208/78 06/30 0800 99.2 76 20 224/114 95 Nasal 2.0L Cannula 06/30 0800 94 Nasal 2.0L Cannula 06/30 0400 94 Nasal 2.0L Cannula 06/30 0000 97.9 76 24 184/88 94 Nasal 2.0L Cannula 06/29 2159 Nasal 2.0L Cannula 06/29 2109 94 Nasal 2.0L Cannula 06/29 2004 96 Nasal 2.0L Cannula 06/29 1948 78 20 198/86 98 Nasal 2.0L Cannula 06/29 1849 97.7 75 16 190/84 98 Nasal 2.0L Cannula 06/29 1625 200/88 06/29 1615 98.7 82 20 203/88 95 Room Air 06/29 1538 72 220/110 06/29 1503 72 26 220/110 96 Nasal 2.0L Cannula 06/29 1450 70 18 232/104 06/29 1437 97 Nasal 1.5L Cannula 06/29 1433 70 218/105 06/29 1420 218/105 06/29 1348 74 18 234/112 06/29 1251 74 18 202/94 99 Nasal 2.0L Cannula Intake & Output 06/30 1600 06/30 0800 06/30 0000 06/29 1600 06/29 0800 06/29 0000 Intake Total 400 10 Output Total 300 200 Balance -300 200 10 Intake, IV 400 10 Output, Urine 300 200 Patient 181 lb 181 lb Weight Physical Exam: General Appearance Alert, Oriented X3, Cooperative, Mild Distress Skin Dry all over because of psoriasis HEENT Atraumatic, PERRLA, EOMI, Mucous Membr. moist/pink Neck No JVD Cardiovascular Regular Rate, Normal S1, Normal S2, 1/6 systolic murmur left sternal border Lungs decrease air entry in the right more than left. wheezing best heared on the anterior chest Abdomen distended, bowel sounds slightly increased; slight left upper quadrant tenderness to palpation. No rebound. Neurological nonfocal Extremities No Clubbing, No Cyanosis, No Edema, very dry skin Current Medications: Current Medications Sig/Jonathan Start time Last Medication Dose Route Stop Time Status Admin Acetaminophen 650 MG Q6P PRN 06/29 1730 AC PO Albuterol Sulfate 3 ML Q4P PRN 06/29 2215 AC INH Albuterol Sulfate 3 ML ONCE ONE 06/29 2014 DC 06/29 INH 06/29 Albuterol Sulfate 3 ML ONCE ONE 06/29 1430 DC 06/29 INH 06/29 1431 1426 Amlodipine Besylate 5 MG DAILY 06/30 1000 DC PO Amlodipine Besylate 0 .STK-MED ONE 06/29 1421 DC PO Amlodipine Besylate 5 MG ONCE ONE 06/29 1415 DC 06/29 PO 06/29 1416 1433 Aspirin 81 MG DAILY 06/30 1000 AC 06/30 PO 1129 Atorvastatin Calcium 40 MG 1700 06/30 1700 AC PO Docusate Sodium 100 MG BID PRN 06/29 1745 AC PO Heparin Sodium 5,000 UNIT Q8 06/29 2200 AC 06/30 (Porcine) SC 0611 Hydralazine HCl 100 MG BID 06/30 1104 AC PO Hydralazine HCl 10 MG ONCE PRN 06/29 2030 DC 06/30 IV 0807 Hydralazine HCl 0 .STK-MED ONE 06/29 1532 DC .ROUTE Hydralazine HCl 10 MG ONCE ONE 06/29 1530 DC 06/29 IV 06/29 1531 1538 Hydralazine HCl 10 MG ONCE ONE 06/29 1345 DC 06/29 IV 06/29 1346 1348 Hydralazine HCl 0 .STK-MED ONE 06/29 1342 DC .ROUTE Hydromorphone HCl 1 MG ONCE ONE 06/29 1515 DC 06/29 IV 06/29 1516 1511 Hydromorphone HCl 0 .STK-MED ONE 06/29 1509 DC .ROUTE Ipratropium Gibbon 2.5 ML ONCE ONE 06/29 2014 DC 06/29 INH 06/29 Labetalol HCl 20 MG ONCE ONE 06/30 1115 DC 06/30 IV 06/30 1116 1133 Labetalol HCl 200 MG BID 06/30 1105 AC 06/30 PO 1133 Labetalol HCl 100 MG BID 06/29 2199 DC PO Labetalol HCl 50 MG BID 06/29 2199 DC PO Lorazepam 1 MG ONCE ONE 06/30 1130 DC 06/30 PO 06/30 1131 1133 Morphine Sulfate 2 MG ONCE ONE 06/29 1315 DC 06/29 IV 06/29 1316 1315 Morphine Sulfate 0 .STK-MED ONE 06/29 1312 DC .ROUTE Oxycodone/ 2 TAB Q8P PRN 06/29 1745 AC Acetaminophen PO Oxycodone/ 1 TAB Q6P PRN 06/29 1730 AC 06/29 Acetaminophen PO 2048 Pantoprazole Sodium 40 MG DAILY 06/30 1000 AC 06/30 IV 1129 Sodium Chloride 500 ML ONCE ONE 06/30 0915 DC 06/30 IV 06/30 1114 0906 Results Last 48 Hrs of Labs/Mics: Laboratory Tests 06/30/16 0505: Anion Gap 11, Estimated GFR 54 L, Glucose 84, Calcium 9.0, Phosphorus 4.1, Magnesium 1.9, Total Bilirubin 0.9, AST 20, ALT 31, Albumin 3.5, Triglycerides 99, Cholesterol 183, LDL Cholesterol, Calc 131 H, HDL Cholesterol 33 L, Cholesterol/HDL Ratio 6 H, CBC w Diff NO MAN DIFF REQ, RBC 5.39, MCV 90.4, MCH 30.0, RDW 14.1, MPV 9.2, Gran % 78.8 H, Lymphocytes % 8.8 L, Monocytes % 10.0 H, Eosinophils % 2.0, Basophils % 0.4, Absolute Granulocytes 9.1 H, Absolute Lymphocytes 1.0 L, Absolute Monocytes 1.2 H, Absolute Eosinophils 0.2, Absolute Basophils 0, PUBS MCHC 33.1 06/30/16 0010: Troponin I 0.04 06/29/16 1905: Lactic Acid 1.7, Troponin I 0.03 06/29/16 1240: Hemoglobin A1c Pending 06/29/16 1240: Anion Gap 10, Estimated GFR 54 L, BUN/Creatinine Ratio 14.6, Glucose 105 H, Lactic Acid 1.4, Calcium 9.1, Total Bilirubin 0.5, AST 21, ALT 28, Alkaline Phosphatase 80, Troponin I 0.03, [id number]-Puvyfpmmapz Pept 417 H, Total Protein 7.1, Albumin 3.7, Globulin 3.4, Albumin/Globulin Ratio 1.1, Amylase 71, Lipase 149, CBC w Diff NO MAN DIFF REQ, RBC 5.46, MCV 89.7, MCH 30.1, RDW 13.5, MPV 8.7 , Gran % 77.1 H, Lymphocytes % 9.5 L, Monocytes % 9.9 H, Eosinophils % 3.3, Basophils % 0.2, Absolute Granulocytes 8.9 H, Absolute Lymphocytes 1.1 L, Absolute Monocytes 1.1 H, Absolute Eosinophils 0.4, Absolute Basophils 0, PUBS MCHC 33.6 Assessment/Plan Assessment/Plan Assessment: 1. Uncontrolled HTN 2. LUQ/Left lower chest discomfort; r/o ACS - The patient symptoms are atypical for ischemia. CT shows subtle left lower lobe infiltrate with mildly elevated WBC count. No dissection on CT chest. 3. Known CAD with distant history of multiple stents. 4. Mild SANDRO 5. History of renal artery stenosis and prior stent 6. Left adrenal nodule; ? adenoma 7. Diffuse atheromatous disease thoracic aorta with evidence of plaque ulceration. Recommendations: -Case and plans discussed with house staff. -Continue current plan for all medications for blood pressure. IV hydralazine or slow dose IV labetalol as necessary to optimize blood pressure and maintain systolic in the 160-180 range. Line-CTA of the neck today to better assess carotid anatomy -Renal artery Doppler ultrasound pending; any plans for further imaging of the renal arteries depending on results of the renal artery Doppler. -In view of the patient's persistent left upper quadrant tenderness, noncontrast CT of the abdomen pelvis today to rule out other pathology. -At the present time, the patient denies adamantly any pleuritic quality to the left upper quadrant/left lower chest discomfort. It is not positional. It is slightly worse with deep palpation. Keep planned as noted above. -Formal vascular surgery input pending. -Further plans for adjustment of blood pressure medications after the blood pressures monitored closely for the next 24 hours. -Continue statin and aspirin as previously discussed. -If the patient remains stable, he could likely be transferred to [address] [place] [address] telemetry later today. Continue telemetry? Yes
--- NOTE | 2016-06-30 13:25 | CT SCAN REPORT ---
EXAMINATION: CT ABDOMEN AND PELVIS WITHOUT CONTRAST CLINICAL INFORMATION: Left upper quadrant pain. COMPARISON: 04/20/2016 TECHNIQUE: Multidetector volumetric imaging was performed from the superior aspect of the liver through the pubic symphysis. Sagittal and coronal reformatted images were obtained on the technologist's workstation. DLP: 600 mGy-cm. FINDINGS: LUNG BASES: Bronchial wall thickening in the right lower lobe posteriorly greater than left with some underlying mucous plugging is again noted. A previous more rounded focus of reticular thickening in the periphery of the right lower lobe in the right costophrenic angle posterior medially has resolved. There are trace bilateral pleural effusions which are new. LIVER AND SPLEEN: There is 1.3 cm maximal dimension cyst in the superior aspect of the left lobe of the liver. There are a few scattered other hypodensities in the liver too small for further characterization also likely cysts. Spleen is unremarkable. PANCREAS GALLBLADDER AND BILIARY TREE: Unremarkable. Pancreas appears unremarkable. Gallbladder is not visualized likely previously removed with some small calcifications or surgical clips in the gallbladder fossa. Biliary tree is nondilated. KIDNEYS, URETERS, AND ADRENALS: Hyperdensity in the bilateral renal cesar and upper pole right kidney is likely some residual contrast from recent CTA performed yesterday. There is no evidence of urolithiasis. There is a 5 cm exophytic cyst off the lower pole of the left kidney. There is no evidence of hydronephrosis, nephrolithiasis, or solid renal masses. A small exophytic cyst off the lower pole of the right kidney is also again noted. Other smaller lesions are not well visualized on today's exam without contrast. There is a stable 1.2 cm maximal dimension lipid rich left adrenal adenoma unchanged. URINARY BLADDER: Contrast-filled from recent CTA. No filling defects are noted. GI TRACT: The cecum and right colon are stool-filled. The cecum is on a long mesentery situated midline in the deep pelvis. The appendix is normal-appearing extending cephalad. Stomach and small bowel appear unremarkable. PERITONEAL CAVITY: No intraperitoneal free fluid is seen. RETROPERITONEUM: There is extensive atherosclerotic arterial calcification without aneurysmal dilatation. There is no retroperitoneal or inguinal adenopathy. PELVIC ORGANS: Prostate is moderately enlarged. OSSEOUS STRUCTURES: No focal destructive or sclerotic osseous lesions are seen. There are mild facet degenerative changes in the lower lumbar regions. ANTERIOR ABDOMINAL WALL AND SOFT TISSUES: Intact without underlying hernia. IMPRESSION: 1. No acute process is identified. 2. There are a few stable appearing small hepatic and renal cysts. 3. Stable small left adrenal adenoma. 4. Prostate remains enlarged.
--- NOTE | 2016-06-30 13:25 | CT SCAN REPORT ---
EXAMINATION: CT ANGIOGRAM NECK CLINICAL INFORMATION: Patient found to have ICA occlusion on Doppler. COMPARISON: Doppler ultrasound from 06/29/2015. TECHNIQUE: Test bolus sequences followed by administration of 82 mL of Optiray 320 intravenous contrast. Helical imaging was performed in the axial plane of the neck. The data was processed at the molecular technologist workstation for generation of MIP sequences. Three-dimensional volume rendered reformatted images were also generated at an offline 3-D workstation. Carotid stenoses are graded per NASCET criteria. FINDINGS: There is atherosclerotic calcification throughout the aortic arch. Lipid rich atherosclerotic plaque results in a severe greater than 90% stenosis of the left common carotid artery origin. There is a severe stenosis involving the left subclavian/axillary artery junction which is likely chronically occluded with adjacent collateral vessels and reconstitution of the left axillary artery more distally. The brachiocephalic artery remains patent and there is mild to moderate narrowing of the right subclavian artery and right common carotid artery origins. Mild stenosis involving the right subclavian axillary artery junction. There is severe stenoses involving the origin and proximal aspect of the right vertebral artery with the remainder of the vessel appearing moderately irregular in contour though patent. The left vertebral artery is dominant and remains widely patent throughout its course. Calcific atherosclerotic plaque results in a 60-70% stenosis of the left carotid bulb by NASCET criteria. No Doppler flow was appreciated within the left internal carotid artery just beyond the bulb yesterday's Doppler ultrasound, a finding that was presumably technically related to vascular tortuosity and a difficult examination with the patient reportedly twitching and coughing as this CTA confirms that the entire left cervical ICA is patent. Mild narrowing of the distal left cervical ICA secondary to lipid rich atherosclerotic plaque. There is atherosclerotic calcification involving the right carotid bifurcation with a less than 50% stenosis by NASCET criteria. Remainder of the right cervical ICA is widely patent. The visualized intracranial arterial vasculature remains widely patent. There is a small subcentimeter low-density nodule within the right thyroid lobe that is below size criteria for follow-up. No significant soft tissue findings within the neck. Solid interbody fusion at C3-C4. There is multilevel cervical spondylosis with severe disc volume loss at C4-C5, C5-C6, and C6-C7. There is slight degenerative anterolisthesis of C7 on T1. There is multilevel facet arthropathy. IMPRESSION: - Calcific atherosclerotic plaque results in a 60-70% stenosis of the left carotid bulb by NASCET criteria. No Doppler flow was appreciated within the left internal carotid artery just beyond the bulb on yesterday's Doppler ultrasound, a finding that was presumably technically related to vascular tortuosity and a difficult examination with the patient reportedly twitching and coughing as this CTA confirms that the entire left cervical ICA is patent. Mild narrowing of the distal left cervical ICA secondary to lipid rich atherosclerotic plaque. - Lipid rich atherosclerotic plaque results in a severe greater than 90% stenosis of the left common carotid artery origin off of the aortic arch. - There is a severe stenosis involving the left subclavian/axillary artery junction which is likely chronically occluded with adjacent collateral vessels and reconstitution of the left axillary artery more distally. - There is severe stenoses involving the origin and proximal aspect of the right vertebral artery with the remainder of the vessel appearing moderately irregular in contour though patent. The left vertebral artery is dominant and remains widely patent throughout its course. - Mild to moderate stenoses involving the right common carotid artery and right subclavian artery origins. - There is atherosclerotic calcification involving the right carotid bifurcation with a less than 50% stenosis by NASCET criteria. - Multilevel cervical spondylosis.
--- NOTE | 2016-06-30 15:58 | Cons- Vascular Surgery ---
General Information and HPI Consulting Request Date of Consult: 06/30/16 Requested By: JAUN MUNSON PhD,ESTEPHANIE Maki History of Present Illness: 76-year-old gentleman with multiple medical issues including coronary artery disease status post coronary stenting 5, CHF, hypertension, left eye corneal transplant presented to the hospital with left upper quadrant pain as well as chest pain. He was also found to have severe hypertension. While in the hospital, he experienced right eye flashing light. This prompted an ultrasound of the carotids which showed no significant disease on the right but occluded left ICA. This was followed by CTA of the neck which showed that in fact the left ICA was patent with 67% stenosis at the bifurcation. There also was severe stenosis of the origin of the left common carotid artery. Right ICA showed less than 50% stenosis. I was asked to see the patient regarding the carotid findings Allergies/Medications Allergies: Coded Allergies: nitroglycerin (Severe, RASH, THROAT SWELLING, DEPRESSION, +SI THOUGHTS 04/20/16) Home Med List: AMOXICILLIN/POTASSIUM CLAV (Augmentin 875-125 Tablet) 875 MG/125 MG TAB 1 TAB PO BID E.Coli septicemia Next dose is due at 12/21/14 NIGHT. Aspirin E.c. (Ecotrin) 325 MG TAB 1 TAB PO DAILY HEART HEALTH (Reported) CLOPIDOGREL BISULFATE (Clopidogrel) 75 MG TABLET 75 MG PO DAILY BLOOD THINNER (Reported) Doxycycline Hyclate (Vibramycin) 100 MG CAPSULE 1 CAP PO BID PNEUMONIA Metoprolol Succinate (Metoprolol Succinate XL) 50 MG TAB.ER.24H 50 MG PO DAILY HIGH BLOOD PRESSURE (Reported) OXYCODONE HCL (Oxycodone) 5 MG CAPSULE 1 CAP PO Q6 PRN PAIN Simvastatin (Zocor) 20 MG TAB 20 MG PO DAILY HIGH CHOLESTROL (Reported) Past History Medical History Blood Transfusion Hx: No Neurological: NONE EENT: glaucoma, corneal transplant (left eye) Cardiovascular: CAD (w/ 5 cardiac stent placement), CHF (5 year history), hypertension, hyperlipidemia, NSTEMI (w/ PCI of Left Circumflex A) Respiratory: COPD Gastrointestinal: NONE Hepatic: NONE Renal: stent placement (renal artery) Musculoskeletal: NONE Psychiatric: NONE Endocrine: NONE Blood Disorders: NONE Cancer(s): NONE [employer] STRATEGY/Reproductive: NONE Other Medical Hx: Psoriasis Surgical History Pertinent Surgical History: cholecystectomy (1 month ago), ERCP Cardiac stents Corneal transplant 2 Family History Relations & Conditions If Any: FATHER ( at a young age from renal disease). Psychosocial History Where Do You Live? Home Services at Home: None Primary Language: Grenadian Smoking Status: Current Everyday Smoker ETOH Use: denies use Functional Ability ADLs Independent: dressing, eating, toileting, bathing. Ambulation: independent Review of Systems Review of Systems: Patient denies headache, dizziness, cough, palpitation, diarrhea or constipation Exam & Diagnostic Data Vital Signs and I&O Vital Signs Date Time Temp Pulse Resp B/P Pulse O2 O2 Flow FiO2 Ox Delivery Rate 06/30 1200 67 139/67 06/30 1200 94 Nasal 2.0L Cannula 06/30 1133 78 200/110 06/30 1133 78 200/110 06/30 1013 97 Nasal 2.0L Cannula 06/30 0807 99.2 70 21 208/78 06/30 0800 99.2 76 20 224/114 95 Nasal 2.0L Cannula 06/30 0800 94 Nasal 2.0L Cannula 06/30 0400 94 Nasal 2.0L Cannula 06/30 0000 97.9 76 24 184/88 94 Nasal 2.0L Cannula 06/29 2159 Nasal 2.0L Cannula 06/29 2109 94 Nasal 2.0L Cannula 06/29 2005 96 Nasal 2.0L Cannula 06/29 1948 78 20 198/86 98 Nasal 2.0L Cannula 06/29 1849 97.7 75 16 190/84 98 Nasal 2.0L Cannula 06/29 1625 200/88 06/29 1615 98.7 82 20 203/88 95 Room Air Intake & Output 06/30 1600 06/30 0800 06/30 0000 06/29 1600 06/29 0800 06/29 0000 Intake Total 500 400 10 Output Total 525 300 200 Balance -25 -300 200 10 Intake, IV 500 400 10 Intake, Oral 0 Output, Urine 525 300 200 Patient 181 lb 181 lb Weight Physical Exam: Patient is alert and oriented 3 Cardiovascular: Regular rate and rhythm Lungs: Clear to auscultation bilaterally Abdomen: Soft, nontender nondistended Extremities: Well-perfused, left radial pulse is much weaker in compared to the right. Assessment/Plan Assessment/Plan 76-year-old man with multiple medical issues admitted with severe hypertension and was found to have severe stenosis at the origin of the left common carotid artery as well as 60-70% stenosis of the proximal left ICA. The stenosis in the proximal left common carotid arteries chronic in nature and no specific surgical intervention is needed at this time. The moderate left ICA stenosis will need to be followed as an outpatient. I recommend antiplatelet therapy and a cholesterol-lowering medications. I will follow him as an outpatient. Thank you for asking me to be involved in the care of this patient. Consult Acknowledgment - Thank you for your consult request. Attending MD Review Statement Attending Statement Attending MD Statement: examined this patient, discuss w/resident/PA/DOWEL INSERTING MACHINE OPERATOR
[2016-06-30 16:00] VITALS: BP 164/80
[2016-07-01] VITALS (9 sets, daily range): BP systolic 146–191; BP diastolic 53–90
--- NOTE | 2016-07-01 00:10 | Event Note ---
Event Note Event Note: BP update: at around 2200, pts BP was stable at the mid 150s systolic, which is our goal BP and antihypertensives were held. We will recheck in 1 hour and dose him accordingly as dropping him too quickly would put him at increased risk of ischemic CVA given his significant diffuse athersclerosis and carotid artery stenosis.
--- NOTE | 2016-07-01 00:12 | NUR ---
2230=B/P 167/62 HR 64 SR. PER MD WALTON HOLD PO LABETALOL AND HYDRALAZINE. RECHECK B/P IN ONE HOUR 0000=B/P 180/78 HR 71 SR. MD WALTON MADE AWARE, GIVE 10PM DOSE OF LABETALOL AT THIS TIME, DO NOT GIVE HYDRALAZINE.
--- NOTE | 2016-07-01 02:17 | NUR ---
B/P 126/62 MD MONTESINOS MADE AWARE OF DROP FROM MIDNIGHT OF 180/78
[2016-07-01 05:45] LABS: ABSOLUTE BASOPHIL COUNT 0.1 /CUMM (0.0-0.2); ABSOLUTE EOSINOPHIL COUNT 0.2 /CUMM (0.0-0.7); ABSOLUTE GRANULOCYTE CT 6.8 /CUMM (1.4-6.5); ABSOLUTE LYMPH COUNT 1.1 /CUMM (1.2-3.4); BASOPHIL % 0.7 % (0.0-2.0); EOSINOPHIL % 2.6 % (0-5); GRANULOCYTE % 73.7 % (42.2-75.2); HEMATOCRIT 44.8 % (42-52); MEAN CORPUSCULAR HGB 30.2 PG (27.0-31.0); MEAN CORPUSCULAR HGB CONC 33.4 G/DL (33.0-37.0); MEAN CORPUSCULAR VOLUME 90.3 FL (80.0-94.0); MEAN PLATELET VOLUME 9.1 FL (7.4-10.4); PLATELET COUNT 184 /CUMM (130-400); RBC DISTRIBUTION WIDTH 13.9 % (11.5-14.5); RED BLOOD CELL CT 4.96 /CUMM (4.70-6.10); WHITE BLOOD CELL COUNT 9.3 /CUMM (4.8-10.8)
--- NOTE | 2016-07-01 09:16 | ULTRASOUND REPORT ---
EXAMINATION: ULTRASOUND OF KIDNEYS WITH RENAL ARTERY DOPPLER CLINICAL INFORMATION: Renal artery stenosis status post stent placement. Evaluate for renal artery flow.. COMPARISON: 06/30/2016 CT TECHNIQUE: Portable ultrasound of the kidneys was performed along with color flow Doppler imaging and velocity measurements in the proximal mid and distal renal arteries. Aortic velocities were attempted. Limited exam due to portable study, body habitus, and bowel gas. FINDINGS: The kidneys are unremarkable with the right kidney measuring 10.8 cm and the left kidney measuring 10.5 cm. There is a lower pole cyst measuring 4.4 cm on the left. No solid renal mass, renal stones or hydronephrosis is seen. On the right, there is a small amount of flow in the mid and distal artery. There is no definite flow in the proximal right renal artery (where the stent is located), although this area is not well visualized. The renal artery arterial waveforms are significantly dampened, with the peak systolic velocities diminished, measuring between 29 and 49. On the left, there are appropriate arterial waveforms identified, with mild elevation of resistive resistive indices, measuring 0.7, 0.84, and 0.85. The aorta is not well-visualized, and therefore the renal aortic ratios can not be calculated. IMPRESSION: Limited exam. Significantly diminished flow in the right renal artery with poor arterial waveforms. The proximal right renal artery is not visualized and flow can not be confirmed within the stent. The left renal artery is patent.
--- NOTE | 2016-07-01 10:41 | PN- Cardiology ---
Subjective Subjective: Clinically, the patient appears to be doing much better today. He still complains of an ill-defined left upper quadrant discomfort. He notes that this is very similar to the right upper quadrant discomfort he had several months ago. At that time, those symptoms resolved with antibiotics. Otherwise, he denies any cardiac symptoms. Objective Vital Signs and I&Os Vital Signs Date Time Temp Pulse Resp B/P Pulse O2 O2 Flow FiO2 Ox Delivery Rate 07/01 08 95 Nasal 2.0L Cannula 07/01 0800 98.3 66 22 170/90 95 Nasal 2.0L Cannula 07/01 0400 96 Nasal 2.0L Cannula 07/01 0000 96 Nasal 2.0L Cannula 07/01 0000 98.0 64 20 180/78 96 Nasal 2.0L Cannula 06/30 2311 71 180/78 06/30 2310 65 167/62 06/30 2310 95 Nasal 2.0L Cannula 06/30 2000 94 Nasal 2.0L Cannula 06/30 1600 97 Nasal 2.0L Cannula 06/30 1600 98.1 64 20 164/80 96 Nasal 2.0L Cannula 06/30 1200 67 139/67 06/30 1200 94 Nasal 2.0L Cannula 06/30 1133 78 200/110 06/30 1133 78 200/110 Intake & Output 07/01 1600 07/01 0800 07/01 0000 06/30 1600 06/30 0800 06/30 0000 Intake Total 80 400 500 400 Output Total 400 1200 525 300 200 Balance -320 -800 -25 -300 200 Intake, IV 500 400 Intake, Oral 80 400 0 Number 0 0 Bowel Movements Output, Urine 400 1200 525 300 200 Patient 181 lb Weight Physical Exam: General Appearance Alert, Oriented X3, Cooperative, Mild Distress Skin Dry all over because of psoriasis HEENT Atraumatic, PERRLA, EOMI, Mucous Membr. moist/pink Neck No JVD Cardiovascular Regular Rate, Normal S1, Normal S2, 1/6 systolic murmur left sternal border Lungs decrease air entry in the right more than left. wheezing best heared on the anterior chest Abdomen distended, bowel sounds slightly increased; slight left upper quadrant tenderness to palpation. No rebound. Neurological nonfocal Extremities No Clubbing, No Cyanosis, No Edema, very dry skin Current Medications: Current Medications Sig/Jonathan Start time Last Medication Dose Route Stop Time Status Admin Acetaminophen 650 MG Q6P PRN 06/29 1730 AC PO Albuterol Sulfate 3 ML Q4P PRN 06/29 2215 AC INH Amlodipine Besylate 5 MG DAILY 06/30 1000 DC PO Aspirin 81 MG DAILY 06/30 1000 AC 06/30 PO 1129 Atorvastatin Calcium 40 MG 1700 06/30 1700 AC 06/30 PO 1719 Docusate Sodium 100 MG BID PRN 06/29 1745 AC PO Famotidine 40 MG DAILY 07/01 1037 UNVr PO Furosemide 20 MG ONCE ONE 06/30 1530 DC 06/30 IV 06/30 1531 1720 Heparin Sodium 5,000 UNIT Q8 06/29 2200 AC 07/01 (Porcine) SC 0642 Hydralazine HCl 100 MG BID 06/30 1104 AC PO Hydralazine HCl 10 MG ONCE PRN 06/29 2030 DC 06/30 IV 0807 Labetalol HCl 20 MG ONCE ONE 06/30 1115 DC 06/30 IV 06/30 1116 1133 Labetalol HCl 200 MG BID 06/30 1105 AC 06/30 PO 2311 Labetalol HCl 50 MG BID 06/29 2200 DC PO Lorazepam 1 MG ONCE ONE 06/30 1130 DC 06/30 PO 06/30 1131 1133 Oxycodone/ 2 TAB Q8P PRN 06/29 1745 AC Acetaminophen PO Oxycodone/ 1 TAB Q6P PRN 06/29 1730 AC 06/29 Acetaminophen PO 2048 Pantoprazole Sodium 40 MG DAILY 06/30 1000 DC 06/30 IV 1129 Sodium Chloride 500 ML ONCE ONE 06/30 0915 DC 06/30 IV 06/30 1114 0906 Results Last 48 Hrs of Labs/Mics: Laboratory Tests 07/01/16 0450: Anion Gap 7, Estimated GFR 42 L, Glucose 90, Calcium 8.7, Phosphorus 4.4, Magnesium 2.0, Total Bilirubin 0.7, AST 19, ALT 27, Albumin 3.1 L, CBC w Diff NO MAN DIFF REQ, RBC 4.96, MCV 90.3, MCH 30.2, RDW 13.9, MPV 9.1, Gran % 73.7, Lymphocytes % 12.4 L, Monocytes % 10.6 H, Eosinophils % 2.6, Basophils % 0.7, Absolute Granulocytes 6.8 H, Absolute Lymphocytes 1.1 L, Absolute Monocytes 1.0 H, Absolute Eosinophils 0.2, Absolute Basophils 0.1, PUBS MCHC 33.4 06/30/16 0505: Anion Gap 11, Estimated GFR 54 L, Glucose 84, Calcium 9.0, Phosphorus 4.1, Magnesium 1.9, Total Bilirubin 0.9, AST 20, ALT 31, Albumin 3.5, Triglycerides 99, Cholesterol 183, LDL Cholesterol, Calc 131 H, HDL Cholesterol 33 L, Cholesterol/HDL Ratio 6 H, CBC w Diff NO MAN DIFF REQ, RBC 5.39, MCV 90.4, MCH 30.0, RDW 14.1, MPV 9.2, Gran % 78.8 H, Lymphocytes % 8.8 L, Monocytes % 10.0 H, Eosinophils % 2.0, Basophils % 0.4, Absolute Granulocytes 9.1 H, Absolute Lymphocytes 1.0 L, Absolute Monocytes 1.2 H, Absolute Eosinophils 0.2, Absolute Basophils 0, PUBS MCHC 33.1 06/30/16 0010: Troponin I 0.04 06/29/16 2100: Urine Total Volume Pending, U Metanephrines 24 Hr Pending, U Normetanephrine 24h Pending, U Tot Metanephrine 24h Pending 06/29/16 2100: Urine Total Volume Pending, Urine Free Cortisol Pending, Urine Creatinine Pending, Urine Total Volume Pending, Ur Epinephrine 24 Hr Pending, U Norepinephrine 24 Hr Pending, Ur Dopamine 24 Hr Pending, U Tot Catecholamine 24h Pending, Urine Creatinine Pending 06/29/16 2100: Urine Total Volume Pending, U Vanillylmandelic Acd Pending 06/29/16 1905: Lactic Acid 1.7, Troponin I 0.03 06/29/16 1240: Hemoglobin A1c Pending 06/29/16 1240: Anion Gap 10, Estimated GFR 54 L, BUN/Creatinine Ratio 14.6, Glucose 105 H, Lactic Acid 1.4, Calcium 9.1, Total Bilirubin 0.5, AST 21, ALT 28, Alkaline Phosphatase 80, Troponin I 0.03, Qzr-I-Arxlmoohnym Pept 417 H, Total Protein 7.1, Albumin 3.7, Globulin 3.4, Albumin/Globulin Ratio 1.1, Amylase 71, Lipase 149, CBC w Diff NO MAN DIFF REQ, RBC 5.46, MCV 89.7, MCH 30.1, RDW 13.5, MPV 8.7 , Gran % 77.1 H, Lymphocytes % 9.5 L, Monocytes % 9.9 H, Eosinophils % 3.3, Basophils % 0.2, Absolute Granulocytes 8.9 H, Absolute Lymphocytes 1.1 L, Absolute Monocytes 1.1 H, Absolute Eosinophils 0.4, Absolute Basophils 0, PUBS MCHC 33.6 Microbiology 06/29 2030 UPPER RESP: Surveillance Culture - COMP Assessment/Plan Assessment/Plan Assessment: 1. Uncontrolled HTN 2. LUQ/Left lower chest discomfort; r/o ACS - The patient symptoms are atypical for ischemia. CT shows subtle left lower lobe infiltrate with mildly elevated WBC count. No dissection on CT chest. 3. Known CAD with distant history of multiple stents. 4. Mild SANDRO 5. History of renal artery stenosis and prior stent 6. Left adrenal nodule; ? adenoma 7. Diffuse atheromatous disease thoracic aorta with evidence of plaque ulceration. Recommendations: -Case and plans discussed with house staff. -The patient's blood pressure has been somewhat improved and remains in the 160- 180 systolic range. For now, I will continue current medical regimen with close monitoring of his blood pressure over the next 24 hours. -The patient can be transferred to [address] [place] [address]. -Renal artery Doppler ultrasound pending; any plans for further imaging of the renal arteries depending on results of the renal artery Doppler. Of note, the patient's creatinine has increased to 1.6 today. This will bear close monitoring. -In view of the patient's persistent left upper quadrant tenderness, noncontrast CT of the abdomen and pelvis demonstrated no significant abnormalities. -At the present time, the patient denies adamantly any pleuritic quality to the left upper quadrant/left lower chest discomfort. It is not positional. It is slightly worse with deep palpation. Keep planned as noted above. As noted, the patient had similar right upper quadrant discomfort which resolved with antibiotics several months ago. In view of the ill-defined left lower lobe infiltrate on chest CT, we might need to consider a short course of antibiotics if the symptoms persist and/or other causes identified. -Consider pulmonary input. -Formal vascular surgery input pending. -Further plans for adjustment of blood pressure medications after the blood pressures monitored closely for the next 24 hours. -Continue statin and aspirin as previously discussed. -Once the patient is on [address] [place] [address], the patient should be ambulated with close monitoring of his blood pressure. Continue telemetry? Yes
--- NOTE | 2016-07-01 17:48 | PN- Resident CRCU ---
Subjective HPI/CRCU Issues: Patient in ICU for: Hypertensive urgency This a.m. patient stated he felt well. Overnight around 2 AM his blood pressure dropped to 126/62 after receiving his p.m. dose of labetalol. Eventually it came back to 160s after his hydralazine was held. This a.m. his blood pressures continued to stay in the 160s range. I added amlodipine 2.5 to his regimen. Next line Vitals stable overnight: 99.5/80/20-30. His BP ranged from 224-162/60-114 Objective Vital Signs & I&O Last 8 Hrs of Vitals and I&O: Intake & Output 07/01 1600 Intake Total 1050 Output Total 400 Balance 650 Intake, Oral 1050 Number 0 Bowel Movements Output, Urine 400 Exam General Appearance: well developed/nourished, no apparent distress Head: atraumatic, normal appearance Ears, Nose, Throat: normal pharynx, normal ENT inspection Neck: normal inspection, supple Respiratory: decreased breath sounds, wheezing Cardiovascular: regular rate/rhythm, edema Gastrointestinal: soft, non-tender Extremities: normal inspection Current Medications: Current Medications Sig/Jonathan Start time Last Medication Dose Route Stop Time Status Admin Acetaminophen 650 MG Q6P PRN 06/29 1730 AC PO Albuterol Sulfate 3 ML Q4P PRN 06/29 2215 AC 07/01 INH 1106 Amlodipine Besylate 2.5 MG DAILY 07/01 1715 AC PO Aspirin 81 MG DAILY 06/30 1000 AC 07/01 PO 1000 Atorvastatin Calcium 40 MG 1700 06/30 1700 AC 06/30 PO 1719 Docusate Sodium 100 MG BID PRN 06/29 1745 AC 07/01 PO 1146 Famotidine 20 MG DAILY 07/01 1037 AC 07/01 PO 1208 Heparin Sodium 5,000 UNIT Q8 06/29 2200 AC 07/01 (Porcine) SC 1400 Hydralazine HCl 10 MG ONCE ONE 07/01 1645 CAN IV 07/01 1646 Hydralazine HCl 100 MG BID 06/30 1104 AC 07/01 PO 1000 Labetalol HCl 200 MG BID 06/30 1105 AC 07/01 PO 1000 Oxycodone/ 2 TAB Q8P PRN 06/29 1745 AC Acetaminophen PO Oxycodone/ 1 TAB Q6P PRN 06/29 1730 AC 06/29 Acetaminophen PO 2048 Pantoprazole Sodium 40 MG DAILY 06/30 1000 DC 06/30 IV 1129 Patient Medication 1 UNIT ONE NR 07/01 1730 [facility] ED 07/01 1800 Impression/Plan Impression/Problem List Impression: This is a 76-year-old male with past medical history significant for CAD ([address]), CHF, uncontrolled hypertension, hyperlipidemia, and semi- status post PCI of left circumflex, glaucoma, corneal transplant in left eye, psoriasis and cholecystectomy. Upon workup he was found to be in hypertensive urgency with left upper quadrant abdominal pain radiating to his chest. PLAN Respiratory: #dyspnea pt has long history of smoking, he has a baseline cough. he is c/o Left lower anterior pleuritic chest pain. ACS was r/o. He does have a questionable pulmonary infiltrate and slightly increased WBC count. * TRC * neb * we'll cont' follow off Abx for now, and watch for any signs of infection. Infectious Diseases: No infection currently Cardiovascular: patient has a history of HTN, HLD, LE bypass surgery, multiple cardiac stents, B/L renal stent and CHF however he is not taking any medicaitons for the past 2 years. he presented with chest/abdo pain and was found to have a BP of 200s/ 100s. even though we still working up his pain, it seems like his pain is related to food and high blood pressure(got worse with food and improved with decreasing BP) #Hypertensive Urgency * We'll start hydralazine 100mg PO BID * We'll change Labetolol to 200mg BID after a 20mg IV bolus. * Amlodipine 2.5 started today. Goal to keep blood pressure between 140 and 160 * The plan is to keep BP around 160s and decrease it by another 20% starting in am * We will also obtain an echocardiogram to evaluate for myocardial thickening and diastolic dysfunction. #Atherosclerosis and B/L CA stenosis as per neck CT * Pt will be started on statin and aspirin as well * vascular has been consulted and will f/u pt in outpatient basis. Hematology: pt has no anemia but has mildly elevated WBCs(11) * repeat CBC in AM; His CBC today shows white count 9.3, hemoglobin 15.0, hematocrit 44.8, platelet 184 Metabolic: Creatinine 1.3 on admission, which is around his baseline. Pt has bilateral renal stents. Of note today his creatinine bumped up to 1.6 and his renal US shows: "Limited exam. Significantly diminished flow in the right renal artery with poor arterial waveforms. The proximal right renal artery is not visualized and flow can not be confirmed within the stent. The left renal artery is patent." Nephrology will need to be consulted in AM for MRA or renal angiography depending on the results of the above * we'll repeat BEP at am Respiratory: #dyspnea pt has long history of smoking, he has a baseline cough. he is c/o Left lower anterior pleuritic chest pain. ACS was r/o. He does have a questionable pulmonary infiltrate and slightly increased WBC count. * TRC * neub * we'll cont' follow off Abx for now, and watch for any signs of infection. Alimentary: Patient has Mild LUQ abdominal pain, pancreatitis was r/o, LFT is WNL. lactate was negative X2. pain started one hour postprandially. pt has history of multiple vascular disease. His pain may present mesenteric ischemia. * Ct abd and pelv was order to r/o and intra-abdominal pathology. Neurological: none Endocrinology none SKIN Diet REG DIET Problem List: 1. Hyperglycemia 2. Renal insufficiency 3. Hypertensive urgency Pain Ratin Pain Location: none Tomorrow's Labs & Rationales: ICU bundle Plan DVT/Prophylaxis: mechanical, pharmacological
--- NOTE | 2016-07-01 21:55 | NUR ---
BP PER AUTO CUFF 182/78, MANUAL BP CHECK 182/[address] CRUZ MONTESINOS, HOLD LABETALOL 200MG, OK TO GIVE HYDRALAZINE CONTINUE TO MONITOR
--- NOTE | 2016-07-02 05:32 | NUR ---
PT'S BLOOD PRESSURE FLUCTUATING FROM 180/75 TO 144/63. NOTIFIED. WILL CONTINUE TO MONITOR.
[2016-07-02 06:00] VITALS: BP 172/69
[2016-07-02 06:30] VITALS: BP 144/63
[2016-07-02 08:00] VITALS: BP 150/80
--- NOTE | 2016-07-02 08:38 | PN- Resident CRCU ---
Impression/Plan Impression/Problem List Impression: Respiratory: #dyspnea pt has long history of smoking, he has a baseline cough. he is c/o Left lower anterior pleuritic chest pain. ACS was r/o. He does have a questionable pulmonary infiltrate and slightly increased WBC count. * TRC * neub * we'll cont' follow off Abx for now, and watch for any signs of infection. Infectious Diseases: No infection currently Cardiovascular: patient has a history of HTN, HLD, LE bypass surgery, multiple cardiac stents, B/L renal stent and CHF however he is not taking any medicaitons for the past 2 years. he presented with chest/abdo pain and was found to have a BP of 200s/ 100s. even though we still working up his pain, it seems like his pain is related to food and high blood pressure(got worse with food and improved with decreasing BP) #Hypertensive Urgency * We'll start hydralazine 100mg PO BID * We'll change Labetolol to 200mg BID after a 20mg IV bolus. * The plan is to keep BP around 160s and decrease it by another 20% starting in am * We will also obtain an echocardiogram to evaluate for myocardial thickening and diastolic dysfunction. #Atherosclerosis and B/L CA stenosis as per neck CT * Pt will be started on statin and aspirin as well * vascular will be consulted. Hematology: pt has no anemia but has mildly elevated WBCs(11) * repeat CBC tomoroww Metabolic: Cr is 1.3 which is around his base line. patient has a B/L renal stent, given his BP at presentation we will order renal US and renal doppler * if abnormal follow with either an MRA or renal angiography depending on the results of the above * we'll repeat BEP at am Alimentary: Patient has Mild LUQ abdominal pain, pancreatitis was r/o, LFT is WNL. lactate was negative X2. pain started one hour postprandially. pt has history of multiple vascular disease. His pain may present mesenteric ischemia. * Ct abd and pelv was order to r/o and intra-abdominal pathology. Neurological: none Endocrinology none SKIN Diet NPO for U/S DVT/Prophylaxis: sc hep Code Status: Full code Plan DVT/Prophylaxis: mechanical, pharmacological
--- NOTE | 2016-07-02 09:30 | NUR ---
NOTIFIED [employer] DR MERCADO #[id number] Ruslan HERNANDEZ #[id number] OF BP MANUALLY IN RIGHT ARM = 180/70. PER TEAM GIVE MEDICATIONS ORDERED PER CMR. WILL CONTINUE TO MONITOR.
[2016-07-02 09:39] VITALS: BP 180/70
--- NOTE | 2016-07-02 11:09 | PN- Housestaff ---
Subjective Follow-up For: 1-Hypertensive urgency 2-Mild SANDRO 3-90% stenosis of the left common carotid artery origin off of the aortic arch Subjective: Patient was seen and examined, he is lying in bed looks relaxed and comfortable. No acute overnight events were reported by the patient or his nurses. Patient reported that he is no longer having this left upper quadrant abdominal pain. Patient denies dizziness, palpitation, chest pain, abdominal pain, nausea, or vomiting. Review of Systems Constitutional: Reports: see HPI. Denies: chills, diaphoresis, fever. Objective Last 24 Hrs of Vital Signs/I&O Vital Signs Date Time Temp Pulse Resp B/P Pulse O2 O2 Flow FiO2 Ox Delivery Rate 07/02 1123 60 140/60 07/02 0942 64 180/70 07/02 0939 64 180/70 07/02 0818 96 Nasal 2.0L Cannula 07/02 0800 95 Nasal 2.0L Cannula 07/02 0800 97.6 64 20 150/80 95 Nasal 2.0L Cannula 07/02 0630 144/63 07/02 0600 97.9 56 20 172/69 95 Nasal Cannula 07/02 0000 Nasal 2.0L Cannula 07/01 2302 63 22 146/53 07/01 2211 72 31 191/76 94 Nasal 2.0L Cannula 07/01 2140 69 182/82 07/01 2136 69 182/82 07/01 2130 69 26 182/82 94 Nasal 2.0L Cannula 07/01 2115 182/78 07/01 2016 98.6 68 30 176/73 96 Nasal 2.0L Cannula 07/01 1930 180/72 07/01 1600 95 Nasal 2.0L Cannula 07/01 1600 99.6 71 27 162/74 95 Nasal 2.0L Cannula Intake & Output 07/02 1600 07/02 0800 07/02 0000 Intake Total 600 Output Total 150 600 200 Balance -150 -600 400 Intake, Oral 600 Output, Urine 150 600 200 Physical Exam General Appearance: Alert, Oriented X3, Cooperative, No Acute Distress Skin: No Rashes HEENT: Atraumatic, PERRLA, EOMI, Mucous Membr. moist/pink Neck: No JVD Cardiovascular: Regular Rate, Normal S1, Normal S2, No Murmurs Lungs: decreased air entry in the right more than left.wheezing patient here in the anterior chest Abdomen: Normal Bowel Sounds, Soft, No Tenderness Neurological: Normal Speech Extremities: No Clubbing, No Cyanosis, No Edema Current Medications: Current Medications Sig/Jonathan Start time Last Medication Dose Route Stop Time Status Admin Acetaminophen 650 MG Q6P PRN 06/29 1730 AC 07/02 PO 0945 Albuterol Sulfate 3 ML Q4P PRN 06/29 2215 DC 07/01 INH 1106 Amlodipine Besylate 2.5 MG DAILY 07/01 1715 AC 07/02 PO 0943 Aspirin 81 MG DAILY 06/30 1000 AC 07/02 PO 0943 Atorvastatin Calcium 40 MG 1700 06/30 1700 AC 07/01 PO 1700 Docusate Sodium 100 MG BID PRN 06/29 1745 AC 07/01 PO 1146 Famotidine 20 MG DAILY 07/01 1037 AC 07/02 PO 0943 Heparin Sodium 5,000 UNIT Q8 06/29 2200 AC 07/02 (Porcine) SC 0603 Hydralazine HCl 10 MG ONCE ONE 07/01 1645 CAN IV 07/01 1646 Hydralazine HCl 100 MG BID 06/30 1104 AC 07/02 PO 0942 Labetalol HCl 200 MG BID 06/30 1105 AC 07/02 PO 0943 Oxycodone/ 2 TAB Q8P PRN 06/29 1745 AC Acetaminophen PO Oxycodone/ 1 TAB Q6P PRN 06/29 1730 AC 06/29 Acetaminophen PO 2048 Patient Medication 1 UNIT ONE NR 07/01 1730 NM Teaching ED 07/01 1800 Last 24 Hrs of Lab/Jovan Results Last 24 Hrs of Labs/Mics: Laboratory Tests 07/02/16 0950: Anion Gap 8, Estimated GFR 42 L, BUN/Creatinine Ratio 16.3 Assessment/Plan Assessment: #dyspnea Pt has long history of smoking, he has a baseline cough. he is c/o Left lower anterior pleuritic chest pain. ACS was r/o. He does have a questionable pulmonary infiltrate and slightly increased WBC count. * TRC * neub * we'll cont' follow off Abx for now, and watch for any signs of infection. #Hypertensive Urgency * We will continue hydralazine 100mg PO BID * We'll continue Labetolol to 200mg BID after a 20mg IV bolus. * Amlodipine 2.5 started yesterday. Goal to keepBP between 140 and 160 * We will also obtain an echocardiogram to evaluate for myocardial thickening and diastolic dysfunction. #Atherosclerosis and B/L CA stenosis as per neck CT * Pt will be started on statin and aspirin as well * vascular has been consulted and will f/u pt in outpatient basis. #Mild SANDRO Patient creatinine on presentation was 1.3, yesterday it increased to 1.6 and she remained the same today. Renal artery Doppler study was done and the results was normal left renal artery and Significantly diminished flow in the right renal artery with poor arterial waveforms. * We repeat BEP tomorrow * Will follow vascular recommendation for the right renal artery stenosis #There are a few stable appearing small hepatic and renal cysts on CT. * Can be followed as an outpatient #Stable small left adrenal adenoma on CT. * Can be followed as an outpatient #Mild left upper quadrant abdominal pain Patient has Mild LUQ abdominal pain, pancreatitis was r/o, LFT is WNL. lactate was negative X2. pain started one hour postprandially. pt has history of multiple vascular disease. His pain may present mesenteric ischemia. * Ct abd and pelv was order. Results came back and told out any acute intra- abdominal pathology Diet: Heart healthy diet DVT/Prophylaxis: sc hep Code Status: Full code Problem List: 1. Hypertension 2. Chest pain 3. Abdominal pain 4. Hypertensive urgency Pain Ratin Pain Location: Left upper quadrant and left lower anterior chest Pain Goal: Remain pain free Pain Plan: See assessment and plan Tomorrow's Labs & Rationales: CBC and ICU bundle
[2016-07-02 11:23] VITALS: BP 140/60
--- NOTE | 2016-07-02 11:25 | NUR ---
NOTIFIED DR MERCADO #[id number] AND RESEARCH INTERVIEWER DR Ruslan HERNANDEZ #[id number] OF REPEAT BP AFTER MORNING MEDICATIONS = 140/60. PER MEDICAL TEAM WILL MAINTAIN MEDICATIONS ORDERED PER CMR AT THIS TIME. WILL CONTINUE TO MONITOR.
--- NOTE | 2016-07-02 14:30 | PN- Cardiology ---
Subjective Subjective: The patient seems to be doing well today. He denies any symptoms whatsoever. His left upper quadrant discomfort has completely resolved over the last 24 hours. No other new issues or symptoms. Objective Vital Signs and I&Os Vital Signs Date Time Temp Pulse Resp B/P Pulse O2 O2 Flow FiO2 Ox Delivery Rate 07/02 1123 60 140/60 07/02 0942 64 180/70 07/02 0939 64 180/70 07/02 0818 96 Nasal 2.0L Cannula 07/02 0800 95 Nasal 2.0L Cannula 07/02 0800 97.6 64 20 150/80 95 Nasal 2.0L Cannula 07/02 0630 144/63 07/02 0600 97.9 56 20 172/69 95 Nasal Cannula 07/02 0000 Nasal 2.0L Cannula 07/01 2302 63 22 146/53 07/01 2211 72 31 191/76 94 Nasal 2.0L Cannula 07/01 2140 69 182/82 07/01 2136 69 182/82 07/01 2130 69 26 182/82 94 Nasal 2.0L Cannula 07/01 2114 182/78 07/01 2016 98.6 68 30 176/73 96 Nasal 2.0L Cannula 07/01 1930 180/72 07/01 1600 95 Nasal 2.0L Cannula 07/01 1600 99.6 71 27 162/74 95 Nasal 2.0L Cannula Intake & Output 07/02 1600 07/02 0800 07/02 0000 07/01 1600 07/01 0800 07/01 0000 Intake Total 601 413 4960 80 400 Output Total 150 600 200 732 280 3806 Balance 410 -600 400 650 -320 -800 Intake, Oral 035 994 3564 80 400 Number 1 0 0 0 Bowel Movements Output, Urine 150 600 200 338 090 5599 Physical Exam: General Appearance Alert, Oriented X3, Cooperative, Mild Distress Skin Dry all over because of psoriasis HEENT Atraumatic, PERRLA, EOMI, Mucous Membr. moist/pink Neck No JVD Cardiovascular Regular Rate, Normal S1, Normal S2, 1/6 systolic murmur left sternal border Lungs decrease air entry in the right more than left. wheezing best heared on the anterior chest Abdomen distended, bowel sounds slightly increased; slight left upper quadrant tenderness to palpation. No rebound. Neurological nonfocal Extremities No Clubbing, No Cyanosis, No Edema, very dry skin Current Medications: Current Medications Sig/Jonathan Start time Last Medication Dose Route Stop Time Status Admin Acetaminophen 650 MG Q6P PRN 06/29 1730 AC 07/02 PO 0945 Albuterol Sulfate 3 ML Q4P PRN 06/29 2215 DC 07/01 INH 1106 Amlodipine Besylate 2.5 MG DAILY 07/01 1715 AC 07/02 PO 0943 Aspirin 81 MG DAILY 06/30 1000 AC 07/02 PO 0943 Atorvastatin Calcium 40 MG 1700 06/30 1700 AC 07/01 PO 1700 Docusate Sodium 100 MG BID PRN 06/29 1745 AC 07/01 PO 1146 Famotidine 20 MG DAILY 07/01 1037 AC 07/02 PO 0943 Heparin Sodium 5,000 UNIT Q8 06/29 2200 AC 07/02 (Porcine) SC 1403 Hydralazine HCl 10 MG ONCE ONE 07/01 1645 CAN IV 07/01 1646 Hydralazine HCl 100 MG BID 06/30 1104 AC 07/02 PO 0942 Labetalol HCl 200 MG BID 06/30 1105 AC 07/02 PO 0943 Oxycodone/ 2 TAB Q8P PRN 06/29 1745 AC Acetaminophen PO Oxycodone/ 1 TAB Q6P PRN 06/29 1730 AC 06/29 Acetaminophen PO 2048 Patient Medication 1 UNIT ONE NR 07/01 1730 VT Teaching ED 07/01 1800 Results Last 48 Hrs of Labs/Mics: Laboratory Tests 07/02/16 0950: Anion Gap 8, Estimated GFR 42 L, BUN/Creatinine Ratio 16.3 07/01/16 0450: Anion Gap 7, Estimated GFR 42 L, Glucose 90, Calcium 8.7, Phosphorus 4.4, Magnesium 2.0, Total Bilirubin 0.7, AST 19, ALT 27, Albumin 3.1 L, CBC w Diff NO MAN DIFF REQ, RBC 4.96, MCV 90.3, MCH 30.2, RDW 13.9, MPV 9.1, Gran % 73.7, Lymphocytes % 12.4 L, Monocytes % 10.6 H, Eosinophils % 2.6, Basophils % 0.7, Absolute Granulocytes 6.8 H, Absolute Lymphocytes 1.1 L, Absolute Monocytes 1.0 H, Absolute Eosinophils 0.2, Absolute Basophils 0.1, PUBS MCHC 33.4 Assessment/Plan Assessment/Plan Assessment: 1. Uncontrolled HTN 2. LUQ/Left lower chest discomfort; r/o ACS - The patient symptoms are atypical for ischemia. CT shows subtle left lower lobe infiltrate with mildly elevated WBC count. No dissection on CT chest. 3. Known CAD with distant history of multiple stents. 4. Mild SANDRO 5. History of renal artery stenosis and prior stent 6. Left adrenal nodule; ? adenoma 7. Diffuse atheromatous disease thoracic aorta with evidence of plaque ulceration. Recommendations: -Case and plans discussed with house staff. -The patient's blood pressure has been somewhat improved and remains in the 130- 160 systolic range. Continue current medical regimen -The patient can be transferred to [address] [place] [address]. -Renal artery Doppler ultrasound was technically limited but demonstrated normal left renal artery flow. Markedly diminished right renal artery flow was noted. The study was somewhat limited by acoustic interference from the stent, however, it clearly raises the possibility of recurrent right renal artery stenosis/stent stenosis. The patient's creatinine is stable today at 1.6 -Left upper quadrant tenderness/discomfort resolved -Formal vascular surgery input noted. The carotid issue was addressed but there was no comment made on the renal artery issue. The patient will need outpatient follow-up with vascular surgery.. -The patient should be ambulated with monitoring of his blood pressure with ambulation. Any further blood pressure medication changes made will be depending on the patient's blood pressure response to ambulation. -If the patient does well, and ambulates without significant difficulty, hopefully he can be discharged in 24 hours for further evaluation and follow-up as outpatient. Continue telemetry? Yes -Continue statin and aspirin as previously discussed. -Once the patient is on [address] [place], [place] [address]etry, the patient should be ambulated with close monitoring of his blood pressure.
[2016-07-02 16:00] VITALS: BP 152/74
--- NOTE | 2016-07-02 22:40 | NUR ---
A/OX3.WEEMS WITH +CMS.SBP ELEVATED 150-180'S BUT ASYMPTOMATIC. CARDIAC MEDS GIVEN WITH FAIR EFFECT.PLAN OF CARE REVIEWED WITH PT.
[2016-07-03] VITALS: BP 126/70
--- NOTE | 2016-07-03 07:29 | PN- Housestaff ---
Subjective Follow-up For: 1-Hypertensive urgency 2-Mild SANDRO 3-90% stenosis of the left common carotid artery origin off of the aortic arch 4-Significantly diminished flow in the right renal artery with poor arterial waveforms. Tele-Events Since Last Visit: HR is 60s to 70s. no event Subjective: Patient was seen and examined, he is lying in bed looks relaxed and comfortable. No acute overnight events were reported by the patient or his nurses. Patient reported that he is no longer having this left upper quadrant abdominal pain. Patient denies dizziness, palpitation, chest pain, abdominal pain, nausea, or vomiting. Patient is asking when he will be discharged. Review of Systems Constitutional: Reports: see HPI. Denies: chills, diaphoresis, fever, malaise. Objective Last 24 Hrs of Vital Signs/I&O Vital Signs Date Time Temp Pulse Resp B/P Pulse O2 O2 Flow FiO2 Ox Delivery Rate 07/03 0000 93 Room Air 07/03 0000 97.9 61 20 126/70 93 Room Air 07/02 2229 62 20 189/75 07/02 2229 62 20 189/75 07/02 1600 98.3 63 20 152/74 95 07/02 1123 60 140/60 Intake & Output 07/03 1600 07/03 0800 07/03 0000 Intake Total 240 Output Total Balance 240 Intake, Oral 240 Physical Exam General Appearance: Alert, Oriented X3, Cooperative, No Acute Distress Skin: No Rashes HEENT: Atraumatic, PERRLA, EOMI, Mucous Membr. moist/pink Neck: No JVD Cardiovascular: Regular Rate, Normal S1, Normal S2, No Murmurs Lungs: Clear to Auscultation (except mild wheezing ) Abdomen: Normal Bowel Sounds, Soft, No Tenderness Neurological: Normal Speech Extremities: No Clubbing, No Cyanosis, No Edema Current Medications: Current Medications Sig/Jonathan Start time Last Medication Dose Route Stop Time Status Admin Acetaminophen 650 MG Q6P PRN 06/29 1730 AC 07/02 PO 0945 Albuterol Sulfate 3 ML Q4P PRN 06/29 2215 DC 07/01 INH 1106 Amlodipine Besylate 5 MG DAILY 07/04 1000 AC PO Amlodipine Besylate 2.5 MG DAILY 07/01 1715 DC 07/02 PO 0943 Aspirin 81 MG DAILY 06/30 1000 AC 07/02 PO 0943 Atorvastatin Calcium 40 MG 1700 06/30 1700 AC 07/02 PO 1757 Docusate Sodium 100 MG BID PRN 06/29 1745 AC 07/01 PO 1146 Famotidine 20 MG DAILY 07/01 1037 AC 07/02 PO 0943 Heparin Sodium 5,000 UNIT Q8 06/29 2200 AC 07/03 (Porcine) SC 0553 Hydralazine HCl 100 MG BID 06/30 1104 AC 07/02 PO 2229 Labetalol HCl 200 MG BID 06/30 1105 AC 07/02 PO 2229 Oxycodone/ 2 TAB Q8P PRN 06/29 1745 AC Acetaminophen PO Oxycodone/ 1 TAB Q6P PRN 06/29 1730 AC 06/29 Acetaminophen PO 2048 Last 24 Hrs of Lab/Jovan Results Last 24 Hrs of Labs/Mics: Laboratory Tests 07/03/16 0425: Anion Gap 7, Estimated GFR 42 L, BUN/Creatinine Ratio 14.4 Assessment/Plan Assessment: #dyspnea Pt has long history of smoking, he has a baseline cough. he was c/o Left lower anterior pleuritic chest pain. ACS was r/o. He does have a questionable pulmonary infiltrate and slightly increased WBC count on admission however it's WNL day. * TRC * neub * we'll cont' follow off Abx for now, and watch for any signs of infection. #Hypertensive Urgency * We will continue hydralazine 100mg PO BID * We'll continue Labetolol to 200mg BID after a 20mg IV bolus. * Amlodipine increased to 5 today. Goal to keepBP and 140 * We will also obtain an echocardiogram to evaluate for myocardial thickening and diastolic dysfunction. #Atherosclerosis and B/L CA stenosis as per neck CT * Pt will be started on statin and aspirin as well * vascular has been consulted and will f/u pt in outpatient basis. #Mild SANDRO Patient creatinine on presentation was 1.3, yesterday it increased to 1.6 and she remained the same today. Renal artery Doppler study was done and the results was normal left renal artery and Significantly diminished flow in the right renal artery with poor arterial waveforms. * We repeat BEP tomorrow * We will plan on an outpatient MRA to assess his renal arteries #There are a few stable appearing small hepatic and renal cysts on CT. * Can be followed as an outpatient #Stable small left adrenal adenoma on CT. * Can be followed as an outpatient #Mild left upper quadrant abdominal pain(resolved Patient has Mild LUQ abdominal pain, pancreatitis was r/o, LFT is WNL. lactate was negative X2. pain started one hour postprandially. pt has history of multiple vascular disease. His pain may present mesenteric ischemia. * Ct abd and pelv was order. Results came back and told out any acute intra- abdominal pathology Diet: Heart healthy diet DVT/Prophylaxis: sc hep Code Status: Full code Problem List: 1. Hypertensive urgency 2. Abdominal pain 3. Chest pain Pain Ratin Pain Location: na Pain Goal: Remain pain free Pain Plan: see A&P Tomorrow's Labs & Rationales: bep for renal function f/u
[2016-07-03 08:00] VITALS: BP 142/80
--- NOTE | 2016-07-03 09:40 | PN- Cardiology ---
Subjective Subjective: * Patient feels much improved. * One BP this morning is WNL but over the weekend he remained significantly hypertensive. * RA stenosis is suspected. Objective Vital Signs and I&Os Vital Signs Date Time Temp Pulse Resp B/P Pulse O2 O2 Flow FiO2 Ox Delivery Rate 07/03 0000 93 Room Air 07/03 0000 97.9 61 20 126/70 93 Room Air 07/02 2229 62 20 189/75 07/02 2229 62 20 189/75 07/02 1600 98.3 63 20 152/74 95 07/02 1123 60 140/60 07/02 0942 64 180/70 07/02 0939 64 180/70 Intake & Output 07/03 1600 07/03 0800 07/03 0000 07/02 1600 07/02 0800 07/02 0000 Intake Total 240 560 600 Output Total 150 600 200 Balance 240 410 -600 400 Intake, Oral 240 560 600 Number 1 Bowel Movements Output, Urine 150 600 200 Physical Exam: General: WD/ WN male in NAD; alert and oriented x 3 Neck: no JVD, bilateral carotid bruits with surgical scar on right, left subclavian buit Heart: RRR with ectopy and a 2/6 systolic murmur at the apex and the LLSB Lungs: decreased breath sounds bilaterally, no crackles Abdomen: soft, distended, tympanic, tender, +ve bowel sounds, Left renal bruit Ext: no edema Assessment/Plan Assessment/Plan * This patient has demonstrated a single controlled BP this morning. We will increase his Norvasc to 5mg daily and continue to monitor his BP. If consistently well controlled this patient may be discharged tomorrow. * Obtain an echocardiogram * We will plan on an outpatient MRA to assess his renal arteries. * Okay for telemetry Continue telemetry? Yes
--- NOTE | 2016-07-03 10:51 | ECHOCARDIOGRAM REPORT ---
IRENE GIRALDO Age: 76 : 1940 Gender: M Exam Date: 06/30/2016 08:04 Exam Location: [facility] Ht (in): 67 Wt (lb): 181 BSA: 1.99 BP: 184 / 88 Ordering Physician: ISAIAH WALTON MD Referring Physician: ISAIAH WALTON MD Technologist: Tono Mcclelland [facility] Room Number: 109-01 Indications: CHEST PAIN Rhythm: Sinus Technical Quality: good FINDINGS Left Ventricle Normal left ventricular size with mild septal hypertrophy. Normal systolic function with no obvious regional wall motion abnormalities. Normal left ventricular diastolic filling pattern for age. The ejection fraction is visually estimated at 65%. Right Ventricle The right ventricle is top normal in size with normal function. Right Atrium The right atrium is normal in size. Left Atrium The left atrium is normal in size. The interatrial septum is intact. Mitral Valve The mitral valve demonstrates mild annular calcification with normal function. There is trace mitral regurgitation. Aortic Valve Mildly thickened and sclerotic aortic valve with mild stenosis. There is no aortic regurgitation. Tricuspid Valve The tricuspid valve is normal in structure and function. There is trace tricuspid regurgitation. Pulmonary artery systolic pressure is normal. Pulmonic Valve Structurally normal pulmonic valve. There is no pulmonic regurgitation. Pericardium Normal pericardium without effusion. No pleural effusion. Great Vessels Normal aortic root dimension. The aortic arch and great vessels are well seen and are normal. CONCLUSIONS 1. Normal EF of 65%. 2. Mild septal hypertrophy. 3. Trace mitral regurgitation. 4. Trace tricuspid regurgitation. 5. Mild aortic stenosis. Adam Winter M.D. (Electronically Signed) Final Date: 03 July 2016 10:50 MEASUREMENTS (Male / Female) Normal Values 2D ECHO LV Diastolic Diameter PLAX 5.4 cm 4.2 - 5.9 / 3.9 - 5.3 cm LV Systolic Diameter PLAX 3.1 cm 2.1 - 4.0 cm LV Fractional Shortening PLAX 42.6 % 25 - 46 % LV Ejection Fraction 2D Teich 73.2 % IVS Diastolic Thickness 1.3 cm LVPW Diastolic Thickness 1.1 cm LV Relative Wall Thickness 0.4 LVOT Diameter 1.9 cm Aortic Root Diameter 2.9 cm LA Systolic Diameter LX 4.0 cm 3.0 - 4.0 / 2.7 - 3.8 cm LV Ejection Fraction MOD BP 66.7 % >= 55 % LV Diastolic Length 4C 8.0 cm 6.9 - 10.3 cm LV Diastolic Area 4C 27.5 cm LV Diastolic Volume MOD 4C 77.0 cm LV Ejection Fraction MOD 4C 67.5 % LV Stroke Volume MOD 4C 52.0 cm LV Systolic Length 4C 6.7 cm LV Systolic Area 4C 13.3 cm LV Systolic Volume MOD 4C 25.0 cm LV Ejection Fraction MOD 2C 65.5 % LV Diastolic Volume 4C AL 80.4 cm 85 - 139 / 69 - 109 cm LV Systolic Volume 4C AL 22.5 cm LV Ejection Fraction 4C AL 71.9 % LV Stroke Volume 4C AL 57.8 cm LV Ejection Fraction 2C AL 66.6 % LA Volume 47.0 cm 18 - 58 / 22 - 52 cm Ascending Aorta Diameter 2.8 cm DOPPLER AV Peak Velocity 203.0 cm/s AV Peak Gradient 16.5 mmHg AV Mean Velocity 138.0 cm/s AV Mean Gradient 9.0 mmHg AV Velocity Time Integral 40.4 cm LVOT Peak Velocity 119.0 cm/s LVOT Peak Gradient 5.7 mmHg LVOT Mean Velocity 77.6 cm/s LVOT Mean Gradient 3.0 mmHg LVOT Velocity Time Integral 23.1 cm LVOT Stroke Volume 65.5 cm AV Area Cont Eq vti 1.6 cm AV Area Cont Eq pk 1.7 cm MV Peak Velocity 114.0 cm/s MV Peak Gradient 5.2 mmHg MV Mean Velocity 60.9 cm/s MV Mean Gradient 2.0 mmHg Mitral E Point Velocity 77.5 cm/s Mitral A Point Velocity 65.6 cm/s Mitral E to A Ratio 1.2 MV PHT Velocity 113.0 cm/s MV Deceleration [place] 654.0 cm/s MV Pressure Half Time 51.8 ms MV Area PHT 4.2 cm MV Deceleration Time 116.0 ms PV Peak Velocity 114.0 cm/s PV Peak Gradient 5.2 mmHg PV Mean Velocity 89.4 cm/s PV Mean Gradient 4.0 mmHg PV Velocity Time Integral 25.1 cm LV E' Lateral Velocity 7.7 cm/s Mitral E to LV E' Lateral Ratio 10.1 LV E' Septal Velocity 5.5 cm/s Mitral E to LV E' Septal Ratio 14.2
--- NOTE | 2016-07-03 15:10 | NUR ---
1100: PATIENT'S B/P 182/90, HR 52-55 GIVEN 5MG OF PO NORVASC AND 100 MG HYDRALIZNE PO HOLDING LABETALOL PER DR. MERCADO. PATIENT'S B/P RECHECKED AT 1200 TO BE 150/80. CONTINUING TO MONITOR.
[2016-07-03 16:24] VITALS: BP 130/71
[2016-07-03 16:48] VITALS: BP 196/70
[2016-07-03 22:27] VITALS: BP 142/74
[2016-07-04 00:06] VITALS: BP 142/82
--- NOTE | 2016-07-04 07:17 | PN- Housestaff ---
Subjective Follow-up For: hypertensive urgency Complaints: no complaints Tele-Events Since Last Visit: No any overnight cardiac events Subjective: Patient seen and examined the pets. He does not have any active complaints. He want to go home. Review of Systems Constitutional: Denies: no symptoms. Objective Last 24 Hrs of Vital Signs/I&O Vital Signs Date Time Temp Pulse Resp B/P Pulse O2 O2 Flow FiO2 Ox Delivery Rate 07/04 0900 58 160/80 07/04 0900 58 160/80 07/04 0900 58 160/80 07/04 0842 98.5 58 16 160/80 93 Room Air 07/04 0800 Room Air 07/04 0006 98.5 58 18 142/82 91 Room Air 07/03 2227 98.1 64 20 142/74 96 Room Air 07/03 2053 64 162/80 07/03 2053 64 162/80 Intake & Output 07/04 1600 07/04 0800 07/04 0000 Intake Total 360 480 840 Output Total Balance 360 480 840 Intake, Oral 360 480 840 Physical Exam General Appearance: Alert, Oriented X3, Cooperative, No Acute Distress Skin: No Rashes, No Breakdown Neck: Supple, increased Cardiovascular: Normal S1, Normal S2 Lungs: mild left lower lobe crepts Abdomen: Soft, No Tenderness, distended Neurological: Normal Speech Extremities: No Clubbing, No Cyanosis, No Edema Assessment/Plan Assessment: 76/M with PMH of CAD (w/ 5 cardiac stent placement), CHF (7 year history), HTN, HLD, NSTEMI (w/ PCI of Left Circumflex A) stent placement (renal artery), glaucoma, corneal transplant (left eye), psoriasis and cholecystectomy 2 years ago presented to [facility] complaning of left upper quadrant abdominal pain radiates to his left lower chest. Problem list - Hypertensive urgency CAD (w/ 5 cardiac stent placement), CHF (7 year history), HTN, HLD, NSTEMI (w/ PCI of Left Circumflex A) stent placement (renal artery), glaucoma, corneal transplant (left eye), psoriasis cholecystectomy Hepatic/renal cyst Left adrenal adenoma Plan- * Discharge today, advised to follow-up within a week of discharge * Advised for MRA as an outpatient,to assess his renal arteries. * DRC/nebulization * We will continue amlodipine 10mg PO OD with a goal of blood pressure between 120 to 140 * We will follow echocardiogram. * We will continue statin/aspirin/hydralazine/labetalol * Diet: Heart healthy diet * DVT/Prophylaxis: sc hep * Code Status: Full code Problem List: 1. Hypertensive urgency 2. Renal insufficiency Pain Ratin Pain Location: head Pain Goal: Remain pain free Pain Plan: avoid NSAID Tomorrow's Labs & Rationales: nothing DVT/Prophylaxis: mechanical
[2016-07-04 08:42] VITALS: BP 160/80
--- NOTE | 2016-07-04 08:49 | PN- Cardiology ---
Subjective Subjective: * Patient feels greatly improved. * BP is improved but not yet ideal * sinus rhythm * patient with evidence of renal artery stenosis Objective Vital Signs and I&Os Vital Signs Date Time Temp Pulse Resp B/P Pulse O2 O2 Flow FiO2 Ox Delivery Rate 07/04 08 Room Air 07/04 0006 98.5 58 18 142/82 91 Room Air 07/03 2227 98.1 64 20 142/74 96 Room Air 07/03 2053 64 162/80 07/03 2053 64 162/80 07/03 1648 98.1 62 17 196/70 96 Room Air 07/03 1600 Room Air 07/03 1226 158/80 07/03 1224 53 158/80 07/03 1038 55 182/70 Intake & Output 07/04 1600 07/04 0807/04 0000 07/03 1600 07/03 0807/03 0000 Intake Total 480 840 240 Output Total Balance 480 840 240 Intake, Oral 480 840 240 Physical Exam: General: WD/ WN male in NAD; alert and oriented x 3 Neck: no JVD, bilateral carotid bruits with surgical scar on right, left subclavian buit Heart: RRR with ectopy and a 2/6 systolic murmur at the apex and the LLSB Lungs: decreased breath sounds bilaterally, no crackles Abdomen: soft, distended, tympanic, tender, +ve bowel sounds, Left renal bruit Ext: no edema Assessment/Plan Assessment/Plan * This patient has mildly elevated blood pressure although it is dramatically improved compared to pre-admission. We will increase his Norvasc to 10mg daily. * This patient is okay for discharge to home with follow up in the office in one week. * We will plan on an outpatient MRA to assess his renal arteries. * Add Chantix to patient's discharge medications which should include Norvasc 10mg daily, Labetolol 200mg BID, Hydralazine 100mg BID, Atorvastatin 40mg daily and aspirin 81mg daily. Continue telemetry? No
[2016-07-04 09:00] VITALS: BP 160/80
--- NOTE | 2016-07-04 11:58 | Patient Discharge Instructions ---
Discharge Instructions General Discharge Information You were seen/treated for: Hypertensive Urgency Special Instructions: Please make an appointment to see 1) Your associate doctor within one week from discharge. 2) Please make sure you see a primary care physician within one week from discharge. 3) Please make an appointment to see the vascular surgeon within one week from discharge. Diet Recommended Diet: Heart Healthy Activity Activity Self Limited: Yes Acute Coronary Syndrome Inclusion Criteria At DC or during hospital stay patient has or had the following: ACS DIAGNOSIS No Discharge Core Measures Meds if any: Prescribed or Continued at Discharge Meds if any: NOT Prescribed or Continued at Discharge Congestive Heart Failure Inclusion Criteria At DC or during hospital stay patient has or had the following: CHF DIAGNOSIS No Discharge Core Measures Meds if any: Prescribed or Continued at Discharge Meds if any: NOT Prescribed or Continued at Discharge Cerebrovascular accident Inclusion Criteria At DC or during hospital stay patient has or had the following: CVA/TIA Diagnosis No Discharge Core Measures Meds if any: Prescribed or Continued at Discharge Meds if any: NOT Prescribed or Continued at Discharge Venous thromboembolism Inclusion Criteria VTE Diagnosis No VTE Type NONE VTE Confirmed by (Test) NONE Discharge Core Measures - Per Current guidelines, there needs to be overlap - treatment for the first 5 days of Warfarin therapy. - If discharged on Warfarin prior to 5 days of - overlap therapy, the patient will need to be - assessed for post discharge needs including - *Post discharge parental anticoagulation - *Warfarin and/or parental anticoagulation education - *Follow up date to check INR post discharge At least 5 days overlap therapy as Inpatient No Meds if any: Prescribed or Continued at Discharge Note: Overlap Therapy is Warfarin and Anticoagulant Meds if any: NOT Prescribed or Continued at Discharge
[2016-07-04] MEDS ORDERED: ATORVASTATIN CA40 M1 PO (12:18)
[2016-07-04] MEDS ORDERED: AMLODIPINE BESY10 M1 PO (12:18)
[2016-07-04] MEDS ORDERED: HYDRALAZINE HC100 M1 PO (12:19)
[2016-07-04] MEDS ORDERED: LABETALOL HCL200 M1 PO (12:19)
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
--- NOTE | 2016-07-05 07:47 | Discharge Summary ---
Hospital Course Allergies: Coded Allergies: nitroglycerin (Severe, RASH, THROAT SWELLING, DEPRESSION, +SI THOUGHTS 04/20/16) Discharge Instructions Medications at Discharge Discharge Medications: Stop taking the following medications: Metoprolol Succinate (Metoprolol Succinate XL) 50 MG TAB.ER.24H ORAL DAILY Simvastatin (Zocor) 20 MG TAB ORAL DAILY AMOXICILLIN/POTASSIUM CLAV (Augmentin 875-125 Tablet) 875 MG/125 MG TAB ORAL TWICE DAILY Qty = 22 Doxycycline Hyclate (Vibramycin) 100 MG CAPSULE ORAL TWICE DAILY Qty = 20 Continue taking these medications: CLOPIDOGREL BISULFATE (Clopidogrel) 75 MG TABLET 75 Milligram ORAL DAILY Comments: LAST TAKEN 12/21 AT 11AM Aspirin (Ecotrin*) 81 MG TABLET.DR 1 Tablet ORAL DAILY Comments: Last Taken: 07/04/16 Time: 9:00 AM Start taking the following new medications: Atorvastatin Calcium (Atorvastatin Calcium) 40 MG TABLET 40 Milligram ORAL 5 PM Days = 30 No Refills Comments: Last Taken: 07/03/16 Time: 9:00 AM Hydralazine HCl (Hydralazine HCl) 100 MG TABLET 1 Tablet ORAL TWICE DAILY Days = 30 No Refills Comments: Last Taken: 07/04/16 Time: 9:00 AM Labetalol HCl (Labetalol HCl) 200 MG TABLET 1 Tablet ORAL TWICE DAILY Days = 30 No Refills Comments: Last Taken: 07/04/16 Time: 9:00 AM Amlodipine Besylate (Amlodipine Besylate) 10 MG TABLET 1 Tablet ORAL DAILY Qty = 30 No Refills Comments: Last Taken: 07/04/16 Time: 9:00 AM
== END 2016-07-04 13:05 | DRG 305 ==
LOC: ERH 11:41 → CRI 15:47 → ENPENDDIS 15:47 → ERHI 15:47 → CRI 20:11 → 1NO 07-03 16:20
PROVIDERS: Internal Medicine Cardiovascular Disease; Physician Assistant Surgical; Student in an Organized Health Care Education/Training Program; ADMIT Specialist
DX: I16.1 Hypertensive emergency (principal); N17.9 Acute kidney failure, unspecified; I50.32 Chronic diastolic (congestive) heart failure; I70.1 Atherosclerosis of renal artery; I11.0 Hypertensive heart disease with heart failure; Z72.0 Tobacco use; I25.2 Old myocardial infarction; Z91.14 Patient's other noncompliance with medication regimen; I70.90 Unspecified atherosclerosis
CPT/HCPCS: 1NSP; 82530; CCU; 36415; 74176; 82436; 87070; 93005; 93010; 93306; 96374; 96375; 96376; 99291; J0360; J1644; J1940; J3490; J7040

== ENCOUNTER 2016-10-24 02:48 | Emergency (ER) | payer OTHER, MEDICARE ==
[~2016-10-24] VITALS: Ht 172.7 cm; Wt 79.4 kg
[~2016-10-24 02:48] MED LIST changes: +AMLODIPINE BESY10 M1 PO; +ATORVASTATIN CA40 M1 PO; +HYDRALAZINE HC100 M1 PO; +LABETALOL HCL200 M1 PO
[2016-10-24 03:04] VITALS: BP 196/84
--- NOTE | 2016-10-24 03:05 | ED UPPER/LOWER EXTREMITY COMPL ---
History of Present Illness General Chief Complaint: Laceration Procedure Stated Complaint: LAC TO RT PINKY FINGER Source: patient Exam Limitations: no limitations Vital Signs & Intake/Output Vital Signs & Intake/Output Vital Signs Date Time Temp Pulse Resp B/P B/P Pulse O2 O2 Flow FiO2 Mean Ox Delivery Rate 10/24 0304 97.8 66 18 196/84 95 Room Air Allergies Coded Allergies: nitroglycerin (Severe, RASH, THROAT SWELLING, DEPRESSION, +SI THOUGHTS 04/20/16) Reconcile Medications Amlodipine Besylate 10 MG TABLET 1 TAB PO DAILY HIGH BLOOD PRESSURE Aspirin (Ecotrin*) 81 MG TABLET.DR 1 TAB PO DAILY Baby aspirin (Reported) Atorvastatin Calcium 40 MG TABLET 40 MG PO 1700 CHOLESTEROL Cephalexin (Keflex) 500 MG CAPSULE 1 CAP PO 4 TIMES/DAY INFECTION PREVENTION X 7 DAYS CLOPIDOGREL BISULFATE (Clopidogrel) 75 MG TABLET 75 MG PO DAILY BLOOD THINNER (Reported) Hydralazine HCl 100 MG TABLET 1 TAB PO BID HIGH BLOOD PRESSURE Labetalol HCl 200 MG TABLET 1 TAB PO BID HIGH BLOOD PRESSURE Triage Nurses Notes Reviewed? yes Onset: Abrupt Duration: minute(s): Timing: single episode today Severity: moderate Pain/Injury Location: Right: 2nd finger. Method of Injury: incised, laceration Modifying Factors: Improves With: rest. Associated Symptoms: BLEEDING HPI: 76-year-old [facility] with a laceration. He states that he was going outside to walk his dog when his right second finger got caught on the door frame. He suffered a laceration. The bleeding was well-controlled prior to arrival. He is able to move his finger without problem. There is no bony tenderness. He is otherwise well Past History Medical History Any Pertinent Medical History? 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 Hx Contributory? No Review of Systems Review of Systems Constitutional: Reports: no symptoms. EENTM: Reports: no symptoms. Respiratory: Reports: no symptoms. Cardiovascular: Reports: no symptoms. Gastrointestinal/Abdominal: Reports: no symptoms. Genitourinary: Reports: no symptoms. Musculoskeletal: Reports: no symptoms. Skin: Reports: no symptoms. Neurological/Psychological: Reports: no symptoms. Hematologic/Endocrine: Reports: no symptoms. Immunological: Reports: no symptoms. All Other Systems: Reviewed and Negative Physical Exam Physical Exam General Appearance: well developed/nourished, mild distress Head: atraumatic Ears, Nose, Throat: normal pharynx Hand Right: 2nd finger, 3 cm lunate flap type laceration around the proximal interphalangeal joint no focal bony tenderness. Range of motion is normal. Bleeding is well-controlled. There is no sign of infection. Progress Differential Diagnosis: aceration versus abrasion versus other Plan of Care: Current Medications Sig/Jonathan Start time Last Medication Dose Stop Time Status Admin Cephalexin 500 MG ONCE ONE 10/25 399 UNVr (Keflex) 10/24 040 Cephalexin 0 .STK-MED ONE 10/24 0354 AC (Keflex) Departure Departure Disposition: HOME OR SELF CARE Condition: Stable Clinical Impression Primary Impression: Finger laceration Referrals: JERONIMO HERNANDEZ MD (PCP/Family) Departure Forms: Customer Survey General Discharge Information Prescriptions: Current Visit Scripts Cephalexin (Keflex) 1 CAP PO 4 TIMES/DAY #28 CAP X 7 DAYS Comments Excellent result. Patient will follow-up in 1-2 days for wound check and to see me on 11/03 to have sutures removed. Given the laceration was slightly contaminated and isn't available sarah part of body, I wrote for Keflex prophylaxis for one week. Also given that the laceration is over the knuckle I believe it past for the sutures to be in place for 9-10 days. Procedures Laceration/Wound Repair Laceration/Wound Repair: Wound Location: RIGHT 2ND DIGIT AT pip JOINT Wound's Depth, Shape: irregular Wound Length (cm): 3 Irrigated w/ Saline (ccs): 300 Betadine Prep? Yes Anesthesia: 1% lidocaine Volume Anesthetic (ccs): 8 Wound Repaired With: sutures Suture Size/Type: 3:0, nylon Number of Sutures: 7 Date of Last Tetanus: 09/09/16 Tetanus Status: up to date
[2016-10-24] MEDS ORDERED: KEFLEX500 M1 PO (03:48)
== END 2016-10-24 03:58 ==
LOC: ERH 02:48
DX: S61.210A Laceration without foreign body of right index finger without damage to nail, initial encounter (principal); W45.8XXA Other foreign body or object entering through skin, initial encounter; Y93.K1 Activity, walking an animal; Y92.9 Unspecified place or not applicable

== ENCOUNTER 2016-10-26 08:55 | Emergency (ER) | payer OTHER, MEDICARE ==
[~2016-10-26] VITALS: Ht 172.7 cm; Wt 79.4 kg
[~2016-10-26 08:55] MED LIST changes: +KEFLEX500 M1 PO
[2016-10-26 08:59] VITALS: BP 127/87
--- NOTE | 2016-10-26 09:14 | ED ANIMAL BITE/WOUND CHECK ---
History of Present Illness General Chief Complaint: Suture Removal/Wound Recheck Stated Complaint: SUTURE CHECK Source: patient, old records Exam Limitations: no limitations Vital Signs & Intake/Output Vital Signs & Intake/Output Vital Signs Date Time Temp Pulse Resp B/P B/P Pulse O2 O2 Flow FiO2 Mean Ox Delivery Rate 10/26 0859 97.1 62 18 127/87 98 Room Air Allergies Coded Allergies: nitroglycerin (Severe, RASH, THROAT SWELLING, DEPRESSION, +SI THOUGHTS 04/20/16) Reconcile Medications Amlodipine Besylate 10 MG TABLET 1 TAB PO DAILY HIGH BLOOD PRESSURE Aspirin (Ecotrin*) 81 MG TABLET.DR 1 TAB PO DAILY Baby aspirin (Reported) Atorvastatin Calcium 40 MG TABLET 40 MG PO 1700 CHOLESTEROL Cephalexin (Keflex) 500 MG CAPSULE 1 CAP PO 4 TIMES/DAY INFECTION PREVENTION X 7 DAYS Clopidogrel Bisulfate (Clopidogrel) 75 MG TABLET 1 TAB PO DAILY BLOOD THINNER (Reported) Hydralazine HCl 100 MG TABLET 1 TAB PO BID HIGH BLOOD PRESSURE Labetalol HCl 200 MG TABLET 1 TAB PO BID HIGH BLOOD PRESSURE Triage Note: 76 YO MALE TO TRIAGE FOR WOUND CHECK. WAS SEEN HERE ON SUNDAY AND HAD SUTURES PLACED TO FINGER. WAS TOLD TO COME BACK TODAY TO HAVE THEM CHECKED. Triage Nurses Notes Reviewed? yes Onset: Abrupt Duration: day(s): (2) Timing: no prior history Injury Environment: home Is Injury an Animal Bite? No Severity: mild Severity Numbers: 2 HPI: Patient is a 76-year-old male here [place] check. He was seen and evaluated 2 days ago after obtaining a laceration on the right pinky finger. He reports his been healing up well. Denies any fevers or chills. No increased swelling. Denies any nausea vomiting. Reports he is still taking antibioticshe was previously prescribed. Denies any discharge from the wound. Past History Travel History Traveled to [place] past 21 day No Medical History Any Pertinent Medical History? 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 Hx Contributory? No Review of Systems Review of Systems Constitutional: Reports: no symptoms. Comments Review of systems: See HPI, All other systems negative. Constitutional, no chills fever or weight loss HEENT: No visual changes no sore throat no congestion Cardiovascular: No chest pain Skin, no jaundice no rashes Respiratory: No dyspnea cough sputum or hemoptysis GI: No nausea no vomiting Muscle skeletal: no back pain, no neck pain, Neurologic: No numbness no confusion Psych: No stress Immunology: No splenectomy or history of AIDS Physical Exam Physical Exam General Appearance: well developed/nourished, no apparent distress, alert, awake , comfortable Comments: Well-developed well-nourished no apparent distress. HEENT: Atraumatic, extraocular motion intact Neck: Supple, no lymphadenopathy Back: Nontender Respiratory: No respiratory distress Extremities: Mild edema appreciated over the right fifth finger diffusely, no erythema. Well healing laceration noted over the PIP joint of the right fifth finger. Capillary refills intact in upper extremities bilaterally. Radial pulses are 2+ bilaterally. [address] intact[address] Neuro: Alert and oriented x3, motor and sensory intact in upper extremities. Psych: Mood affect normal, normal memory normal judgment. Progress Differential Diagnosis: cellulitis, WOUND CHECK Plan of Care: Patient will continue antibiotics, continue keeping the wound clean and dry. A new splint was placed. He will return when he was previously directed to return for suture removal. Return sooner for any worsening symptoms or concerns. Departure Departure Time of Disposition: 910 Disposition: HOME OR SELF CARE Condition: Stable Clinical Impression Primary Impression: Visit for wound check Referrals: JERONIMO HERNANDEZ MD (PCP/Family) Additional Instructions: Follow-up as previously scheduled for suture removal. Keep clean and dry. Continue the antibiotics previously prescribed. Return for worsening symptoms or concerns. Departure Forms: Customer Survey General Discharge Information Procedures Splinting Location: RIGHT 5TH FINGER Manual Alignment Performed: No Pre-Made Type: metal Splint: FINGER Splint Applied By: splint applied by me Pre-Proc Neuro Vasc Exam: normal Post-Proc Neuro Vasc Exam: normal Progress: TOERLATED PROCEDURE WELL
== END 2016-10-26 09:30 ==
LOC: ERH 08:55
DX: Z48.01 Encounter for change or removal of surgical wound dressing (principal)
CPT/HCPCS: 99281

== ENCOUNTER 2016-11-03 19:08 | Emergency (ER) | payer OTHER, MEDICARE ==
[~2016-11-03] VITALS: Ht 172.7 cm; Wt 81.6 kg
--- NOTE | 2016-11-03 21:27 | ED UPPER/LOWER EXTREMITY COMPL ---
History of Present Illness General Chief Complaint: Suture Removal/Wound Recheck Stated Complaint: SUTURE REMOVAL Source: patient Exam Limitations: no limitations Vital Signs & Intake/Output Vital Signs & Intake/Output Vital Signs Date Time Temp Pulse Resp B/P B/P Pulse O2 O2 Flow FiO2 Mean Ox Delivery Rate 11/04 2131 98.0 58 18 174/64 96 Room Air 11/031 98.2 60 18 170/65 96 Room Air ED Intake and Output 11/04 0000 11/03 1200 Intake Total Output Total Balance Patient 180 lb Weight Weight Reported by Patient Measurement Method Allergies Coded Allergies: nitroglycerin (Severe, RASH, THROAT SWELLING, DEPRESSION, +SI THOUGHTS 04/20/16) Reconcile Medications Amlodipine Besylate 10 MG TABLET 1 TAB PO DAILY HIGH BLOOD PRESSURE Aspirin (Ecotrin*) 81 MG TABLET.DR 1 TAB PO DAILY Baby aspirin (Reported) Atorvastatin Calcium 40 MG TABLET 40 MG PO 1700 CHOLESTEROL Cephalexin (Keflex) 500 MG CAPSULE 1 CAP PO 4 TIMES/DAY INFECTION PREVENTION X 7 DAYS Clopidogrel Bisulfate (Clopidogrel) 75 MG TABLET 1 TAB PO DAILY BLOOD THINNER (Reported) Hydralazine HCl 100 MG TABLET 1 TAB PO BID HIGH BLOOD PRESSURE Labetalol HCl 200 MG TABLET 1 TAB PO BID HIGH BLOOD PRESSURE Triage Note: PT TO ED FOR SUTURE REMOVAL RT PINKY FINGER Triage Nurses Notes Reviewed? yes Onset: Abrupt Duration: day(s):, better Timing: single episode today Severity: moderate Pain/Injury Location: Right: 1st finger. Method of Injury: laceration Modifying Factors: Improves With: rest. Associated Symptoms: "My finger feels fine." HPI: 76-year-old gentleman presents for suture removal on his right thumb. He notes that he suffered a laceration last week when he was walking his dog. He had several sutures placed in his right thumb. He notes that he is able to move his thumb without problem. He notes that there is no discharge or warmth. He states, "I think my thumb feels fine now." Past History Travel History Traveled to [place] past 21 day No Medical History Any Pertinent Medical History? 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 Hx Contributory? No Review of Systems Review of Systems Constitutional: Reports: no symptoms. EENTM: Reports: no symptoms. Respiratory: Reports: no symptoms. Cardiovascular: Reports: no symptoms. Gastrointestinal/Abdominal: Reports: no symptoms. Genitourinary: Reports: no symptoms. Musculoskeletal: Reports: no symptoms. Skin: Reports: no symptoms. Neurological/Psychological: Reports: no symptoms. Hematologic/Endocrine: Reports: no symptoms. Immunological: Reports: no symptoms. All Other Systems: Reviewed and Negative Physical Exam Physical Exam General Appearance: well developed/nourished, mild distress Head: atraumatic Eyes: Bilateral: normal appearance. Ears, Nose, Throat: normal pharynx, normal ENT inspection, hearing grossly normal Neck: normal inspection, supple Cardiovascular/Respiratory: regular rate/rhythm Back: normal inspection Hand Right: 1st finger, laceration of right thumb is well healed, sutures intake , ROM is normal Skin: intact, normal color, warm/dry Lymphatic: no anterior cervical elysia Progress Differential Diagnosis: laceration Plan of Care: sutures removed without problem. Departure Departure Disposition: HOME OR SELF CARE Condition: Stable Clinical Impression Primary Impression: Encounter for removal of sutures Referrals: JERONIMO HERNANDEZ MD (PCP/Family) Departure Forms: Customer Survey General Discharge Information
[2016-11-03 21:32] VITALS: BP 174/64
== END 2016-11-03 21:33 ==
LOC: ERH 19:08
DX: S61.011D Laceration without foreign body of right thumb without damage to nail, subsequent encounter (principal)
CPT/HCPCS: 99281